=== PATIENT | male | born 1955 | race Caucasian/White ===

== ENCOUNTER → 2020-08-14 13:26 | Outpatient (BNVA) | payer MEDICARE, SELFPAY | PROVIDERS: Family Provider Family Medicine; PCP Nurse Practitioner Family; Referring Provider Nurse Practitioner Family; Visit Provider Nurse Practitioner Family | DX: R33.9 Retention of urine, unspecified (principal); N40.1 Benign prostatic hyperplasia with lower urinary tract symptoms | CPT/HCPCS: 81003 ==

== ENCOUNTER → 2020-10-07 16:12 | Outpatient (BNVA) | payer MEDICARE, SELFPAY | PROVIDERS: Family Provider Family Medicine; PCP Nurse Practitioner Family; Visit Provider Urology | DX: N40.1 Benign prostatic hyperplasia with lower urinary tract symptoms (principal); N31.8 Other neuromuscular dysfunction of bladder; N30.00 Acute cystitis without hematuria; R33.9 Retention of urine, unspecified | CPT/HCPCS: 81003; 87077; 87086; 87184 ==

== ENCOUNTER 2020-12-02 09:33 | Outpatient (CLI) | payer MEDICARE, SELFPAY ==
--- NOTE | 2020-12-02 09:50 | USCV_ITS ---
Dominik West Age: 65 Gender: M : 1955 Exam Date: 12/02/2020 10:10 Ordering Phys: Camila Santiago Technologist: Corrine Brady [place] [facility] [place]: IRREGULAR HEART BEAT BP: 98 / 59 HR: 88 Rhythm: Sinus Technical Quality: Adequate MEASUREMENTS (Male / Female) Normal Values 2D ECHO LV Diastolic Diameter PLAX 5.0 cm 4.2 - 5.9 / 3.9 - 5.3 cm LV Systolic Diameter PLAX 3.5 cm IVS Diastolic Thickness 1.3 cm 0.6 - 1.0 / 0.6 - 0.9 cm IVS Systolic Thickness 1.7 cm LVPW Diastolic Thickness 1.2 cm 0.6 - 1.0 / 0.6 - 0.9 cm LVPW Systolic Thickness 1.8 cm RV Chamber Size 2.9 cm LVOT Diameter 2.0 cm LV Ejection Fraction 2D Teich 55.1 % LV Ejection Fraction MOD 2C 45.1 % LV Ejection Fraction 2C AL 47.2 % LA Diameter 2.7 cm LA Width 2.8 cm LA Height 4.5 cm RA Width 3.3 cm RA Height 4.3 cm Aorta at Sinotubular Diameter 2.1 cm DOPPLER AV Peak Velocity 75.0 cm/s LVOT Peak Velocity 58.0 cm/s AV Area Cont Eq vti 2.4 cm squared AV Area Cont Eq pk 2.5 cm squared MV Area PHT 5.0 cm squared Mitral E to A Ratio 0.8 MV E' Velocity 46.0 cm/s TR Peak Velocity 223.0 cm/s TR Peak Gradient 19.9 mmHg TV Peak E Velocity 53.0 cm/s Right Atrial Pressure 8.0 mmHg Pulmonary Artery Systolic Pressu 27.9 mmHg PV Peak Velocity 72.0 cm/s RV Acceleration Time 0.1 s RV Ejection Time 0.3 s RV AcT/ET 0.4 FINDINGS Left Ventricle Normal left ventricular cavity size. Moderately reduced left ventricular systolic function. There appeared to be anterior and septal wall hypokinesis. Left ventricular ejection fraction is estimated at 45 %. Grade I/IV diastolic dysfunction (abnormal relaxation filling pattern), normal to mildly elevated filling pressures. Right Ventricle The right ventricle is normal in size and function. Right Atrium The right atrium is normal in size. Left Atrium The left atrium is normal in size. Mitral Valve Mildly thickened mitral valve. No mitral valve stenosis. Trace mitral valve regurgitation. Aortic Valve Severe aortic valve calcification. No aortic valve stenosis. Trace aortic valve regurgitation. Tricuspid Valve Structurally normal tricuspid valve without significant stenosis or regurgitation. Pulmonary artery systolic pressure is normal. Pulmonic Valve Structurally normal pulmonic valve without significant stenosis. There is no pulmonic regurgitation. Pericardium Normal pericardium without effusion. Aorta Normal ascending aorta dimension. CONCLUSIONS 1-Normal left ventricular cavity size. Moderately reduced left ventricular systolic function. There appeared to be anterior and septal wall hypokinesis. Left ventricular ejection fraction is estimated at 45 %. Grade I/IV diastolic dysfunction (abnormal relaxation filling pattern), normal to mildly elevated filling pressures. 2-Severe aortic valve calcification. No aortic valve stenosis. Trace aortic valve regurgitation. 3-Mildly thickened mitral valve. No mitral valve stenosis. Trace mitral valve regurgitation. 4-There is no pericardial effusion. 5-Pulmonary artery systolic pressure is within normal limits. 6-Right atrial pressure is around 5 mm of mercury. 7-There are no prior echocardiogram studies to compare. Jason Estevez MD (Electronically Signed) Final Date: 02 December 2020 19:38 S
== END 2020-12-02 09:34 | disposition home or self-care (01) ==
PROVIDERS: PCP Nurse Practitioner Family; Visit Provider Nurse Practitioner Family
DX: I08.0 Rheumatic disorders of both mitral and aortic valves (principal); I49.9 Cardiac arrhythmia, unspecified
CPT/HCPCS: 93306

== ENCOUNTER 2021-02-10 08:11 | Outpatient (CLI) | payer MEDICARE, SELFPAY ==
[2021-02-10 08:23] VITALS: BMI 20.7
--- NOTE | 2021-02-10 08:24 | ECG_ITS ---
[facility] Test Date: 2021-02-10 Pat Name: Dominik West Department: Room: Gender: Male Measurement And Verification Engineer: Nataliia Anderson : 1955 Requested By: Lauro Kearns Order Number: [id number] Reading MD: DINORAH WEBSTER Interpretive Statements NAME OF STUDY: LEXISCAN SESTAMIBI STRESS TEST INDICATION: Chest Pain, NOTE: Please note that this is the electrocardiogram portion of the Lexiscan/Sestamibi stress test. The perfusion scan will be documented separately. DATA: Baseline heart rate was 79 beats per minute. Baseline blood pressure was 131/70 millimeters of mercury. Target heart rate was 153. Maximum heart rate achieved was 88. which was 57% of the predicted target heart rate. Maximum blood pressure was 131/72 millimeters of mercury. The reason for ending the test was completion of the protocol. The patient did not experience any symptoms. ELECTROCARDIOGRAM: BASELINE: Sinus rhythm. Normal axis. Poor R wave progression, could be lead placement versus old anterior wall myocardial infarction otherwise no ST-T changes suggestive of ischemia noted. No arrhythmia noted. EXERCISE: After Lexiscan injection, no ST-T changes suggestive of ischemic noted. No arrhythmia noted. CONCLUSION: Please note due to baseline abnormality of the EKG specificity and sensitivity of the EKG portion of LexiScan MIBI stress test will be low 1. EKG not suggestive of ischemia 2. Lexiscan injection unremarkable. 3. Perfusion scan will be documented separately. Electronically Signed On 02-22-2021 14:39:55 MINERAL SURVEYING TECHNICIAN by DINORAH WEBSTER [id number]
--- NOTE | 2021-02-10 08:24 | NMCV_ITS ---
NM nicole perf SPECT r/s* [id number] Dominik West Age: 65 Gender: M : 1955 Exam Date: 02/10/2021 09:12 Ordering Phys: Lauro Kearns M.D ([email or web address]) Technologist: ERIK Brown Exam Location: [facility] Indications: CHEST PAIN STRESS TEST [facility] IMAGE PROTOCOL Rest/Stress 1 Lexiscan Day Radiopharmaceutical Dose (mCi) Administration Site Administered by Rest: Tc-99m 10.9 IV ERIK Briones Sestamibi Stress:Tc-99m 32.3 IV ERIK Brown Sestamialirio Rest: 10-Feb-2021 60 Discovery 630 Stress: 10-Feb-2021 30 Discovery 630 0.4mg Lexiscan. Images obtained in supine and prone position. SPECT RESULTS Technical Quality: Excellent Raw Data Analysis: Normal Image Corrections: No attenuation or motion correction applied Summed Stress Score: 23 Summed Rest Score: 25 Summed Difference Score: 1 PERFUSION FINDINGS There is large in size fixed perfusion defects in apical, apical inferior,apical anterior and inferior chaves. This represents prior infarct with no significant aryan-infarct ischemia. FUNCTIONAL RESULTS (calculated via Gated SPECT) Stress Image LV EF (%): 27 Stress EDV (mL):184 TID: 1.14 Stress ESV (mL):134 FUNCTIONAL FINDINGS: LV systolic function is severely reduced with EF of 27% IMPRESSIONS 1. Abnormal myocardial perfusion imaging with large sized infarct noted in apical, apical anterior, apical inferior and inferior chaves. No significant ischemia seen. 2. LV systolic function is severely reduced with EF of 27% Lauro Kearns MD (Electronically Signed) Final Date: 11 February 2021 13:36 S
[2021-02-10 09:45] VITALS: BP 130/72; PULSE 86
[2021-02-10] MEDS: regadenoson 0.4 Mg/5 ml Syringe IVP (09:47)
== END 2021-02-10 08:12 | disposition home or self-care (01) ==
LOC: CDL 08:13
PROVIDERS: PCP Nurse Practitioner Family; Visit Provider Internal Medicine
DX: R07.9 Chest pain, unspecified (principal)
CPT/HCPCS: 78452; 93017; A9500; J2785

== ENCOUNTER → 2021-04-17 11:09 | Outpatient (BNVA) | payer MEDICARE, SELFPAY | PROVIDERS: PCP Nurse Practitioner Family; Visit Provider Internal Medicine | DX: I25.10 Atherosclerotic heart disease of native coronary artery without angina pectoris (principal); I49.9 Cardiac arrhythmia, unspecified; E78.5 Hyperlipidemia, unspecified; E11.9 Type 2 diabetes mellitus without complications | CPT/HCPCS: 99214 ==

== ENCOUNTER 2021-09-02 18:45 | Inpatient (IN) | payer MEDICARE, SELFPAY ==
--- NOTE | 2021-09-02 18:56 | ED_ITS ---
HPI - Nausea/Vomiting/Diarrhea General: Chief complaint: ER Hold Stated complaint: N/V/ DEHYDRATED Time Seen by Provider: 09/02/21 18:55 History of Present Illness: Mr. West is a 66-year-old gentleman with significant past medical history of hypertension, hyperlipidemia, diabetes, CAD, detrussor dysfunction with intermittent self cath, history of ventricular arrhythmia who presents to the emergency department due to generalized symptoms. He reports 3 days of generalized malaise associated with recurrent episodes of nausea, vomiting, and 1 episode of watery diarrhea. He has associated periumbilical discomfort which is moderate in intensity and persisted. He notes poor oral intake and 1 episode of syncope associated with lightheadedness and position change. Overall course of symptoms is worsening. Intensity is moderate to severe. No other specific changes in health, exacerbating, or alleviating factors identified. Pertinent past history: other Onset (ago): day(s) Description of vomiting: watery Description of diarrhea: watery Associated nausea: Yes Associated abdominal pain: Yes Location of pain: Periumbilical Pain consistency: constant Severity: moderate Associated symtoms: Reports nausea Review of Systems General: Reports: 10 or more systems reviewed and unremarkable except in HPI and below GI: Reports: nausea PFSH ED PFSH: Medical History Acute UTI BPH loc w urin obs/LUTS CAD (coronary artery disease) Dehydration Detrusor dysfunction Diabetes Dyspnea on exertion GERD (gastroesophageal reflux disease) Hyperlipidemia Kidney stone Obstructive sleep apnea Self-catheterizes urinary bladder Urinary retention Vomiting Surgical History History of back surgery History of surgery on wrist Hx of heart artery stent Family History Mother , AT AGE 57 Emphysema lung Father , AT AGE 47 Motor vehicle accident Social History Smoking and tobacco status: former smoker Alcohol intake: current Alcohol intake frequency: holidays/special occasions only Marital status: / Current occupational status: retired History of recent travel: No Physical Exam Const: COMMON NORMALS: alert GENERAL APPEARANCE: cooperative, well developed and ill appearing HENMT: COMMON NORMALS: normocephalic and atraumatic HEAD & SCALP: normocephalic and atraumatic OTHER: dry mucous membranes Eye: COMMON NORMALS: conjunctivae normal CONJUNCTIVA: Yes conjunctivae normal SCLERA: sclerae normal Neck/C-Spine: COMMON NORMALS: supple GENERAL: Yes trachea midline Resp: COMMON NORMALS: normal respiratory effort and clear to auscultation bilaterally EFFORT & INSPECTION: Yes able to speak in complete sentences AUSCULTATION: clear to auscultation bilaterally Cardio: COMMON NORMALS: regular rhythm RATE: tachycardic RHYTHM: regular rhythm GI: COMMON NORMALS: Soft to palpation PALPATION: Yes Soft to palpation, Yes Tenderness to palpation present (GI), No Guarding due to palpation present (GI) and No Rigid due to palpation PERCUSSION: normal to percussion Extremity: GENERAL: Yes normal exam except as noted and No edema Neuro: COMMON NORMALS: moves all extremities SENSORIUM/ORIENTATION: Yes alert and No Orientation impaired Psych: COMMON NORMALS: mental status grossly normal and Normal thought process present THOUGHT PROCESS: Normal thought process present Course ED course: - Patient was seen and evaluated by me at bedside - Patient placed on cardiac monitors, IV access obtained - Initial evaluation notable for exam as above. Ill-appearing. Dehydrated appearing. - Labs and xrays personally interpreted by me. EKG showing sinus tachycardia with occasional PVCs, T wave abnormalities, No STEMI. - Fluids and antiemetic given - Labs notable for no leukocytosis, normal hemoglobin. Metabolic panel with some evidence of dehydration. Initial lactate elevated. Delta troponin negative. Urinalysis concerning for urinary tract infection. Ketones positive with mild elevation glucose. Blood gas with compensated pH. - Imaging notable for no lobar consolidation or pneumothorax on chest x-ray. CT head without acute intracranial pathology. There are circumferential bulging of the bladder with mild metabolic end above noticed for UTI on CT abdomen and pelvis. -Antibiotics given - Upon serial reexamination after treatment the patient was only very mildly improved. - Based on patient history, evaluation, and testing as interpreted the most likely cause of the patient's condition is UTI with metabolic derangement - The results of ED evaluation were discussed with the patient including plan for admission due to requirement for level of care not available if discharged to prevent significant worsening/deterioration. - Admitting service was contacted and Dr Duenas with the hospitalist service agreed to admit the patient - Patient was admitted without further deterioration or significant events. Note: Click bubbles or prepopulated boyd in note writing are used for assistance with data collection and billing and are inherently more limited than narrative and other text portions of this note. Please use narrative for additional clinical history and defer to narrative/free test for any case of contradictory information. If information appears in only free text or click bubble it should be considered present or absent as reported. Please contact note assembly instructions writer for clarifications of clinical information or contradictory information. MDM is a brief summary, contradictory or erroneous seeming information should be clarified and full note should be reviewed. Vital Signs: Vital signs: Vital Signs Temperature 98.2 F 09/08/21 17:35 Pulse Rate 70 09/08/21 17:35 Respiratory Rate 14 09/08/21 17:35 Blood Pressure 107/64 09/08/21 17:35 Pulse Oximetry 98 09/08/21 17:35 Oxygen Delivery Me thod 09/08/21 07:36 Oxygen Flow Rate 4 09/07/21 20:00 MDM - Nausea/Vomiting/Diarrhea Medical Decision Making 66-year-old gentleman with generalized symptoms including abdominal symptoms. Patient has complicated urinary tract infection resulting in metabolic abnormality. Admitted for further management. Medical Records I reviewed the patient's medical records. Lab Data I reviewed the patient's lab results. : 09/08/21 05:33 09/08/21 05:33 Radiology Impressions Abdomen/Pelvis CT 09/02/21 19:28 IMPRESSION: 1. Circumferential wall thickening of the bladder and mild symmetric wall thickening of both ureters suspicious for urinary tract infection. Correlate with urinalysis. 2. A couple punctate nonobstructing stones noted in the right kidney. Chest X-Ray 09/02/21 19:28 IMPRESSION: No acute findings. Head CT 09/02/21 19:28 IMPRESSION: No acute intracranial abnormality. Chest/Abdomen/Pelvis CT 09/04/21 15:54 IMPRESSION: 1. Few peripheral areas of ground-glass opacification in the middle lobe and right lower lobe. Findings are concerning for pneumonia, including COVID-19 pneumonia. Recommend clinical correlation. Recommend followup chest imaging to insure resolution of these findings. 2. Incidental/nonacute findings are listed in the report. IMPRESSION: 1. Stable diffuse, mild wall thickening of the bladder. In the correct clinical setting, this may suggest cystitis. Recommend correlation with laboratory findings. Alternatively, this may be secondary to chronic outlet obstruction. 2. Two nonobstructing stones in the right kidney. 3. Incidental/nonacute findings are listed in the report. ADDENDUM: 09/04/211956 Per report, the patient is COVID-19 positive. Urgent results were discussed with Dr. Bruce on 09/04/2021 at 7:54 PM CDT. KUB X-Ray 09/06/21 14:02 IMPRESSION: 1. No intestinal obstruction. 2. Atherosclerosis. Hepatobiliary Scan Nuclear Medicine 09/08/21 12:50 IMPRESSION: 1. Normal HIDA scan. 2. Normal gallbladder ejection fraction. Laboratory Results WBC 5.8 10^3/uL (4.0-10.0) 09/03/21 04:20 RBC 4.41 10^6/uL (4.1-5.3) 09/03/21 04:20 Hgb 12.6 g/dL (11.7-16.6) 09/03/21 04:20 Hct 37.2 % (42.0-52.0) L 09/03/21 04:20 MCV 84.4 fl (80-94) 09/03/21 04:20 MCH 28.6 pg (28.0-34.0) 09/03/21 04:20 MCHC 33.9 g/dL (30.0-36.0) 09/03/21 04:20 RDW 13.1 % (12.1-15.1) 09/03/21 04:20 Plt Count 161 10^3/cmm (130-400) 09/03/21 04:20 MPV 10.0 fL (7.4-10.4) 09/03/21 04:20 Neut % (Auto) 68.4 % 09/03/21 04:20 Lymph % (Auto) 23.4 % 09/03/21 04:20 [place] % (Auto) 8.0 % 09/03/21 04:20 Eos % (Auto) 0.0 % 09/03/21 04:20 Baso % (Auto) 0.0 % 09/03/21 04:20 Neut # (Auto) 3.94 10^3/uL (1.8-7.7) 09/03/21 04:20 Lymph # (Auto) 1.4 10^3/uL (0.8-4.8) 09/03/21 04:20 [place] # (Auto) 0.5 10^3/uL (0.2-0.9) 09/03/21 04:20 Eos # (Auto) 0.0 10^3/uL (0.0-0.8) 09/03/21 04:20 Baso # (Auto) 0.0 10^3/uL (0.0-0.1) 09/03/21 04:20 Nucleated RBC % (auto) 0 % 09/03/21 04:20 Nucleated RBCs # 0.0 /100WBC 09/03/21 04:20 D-Dimer 0.57 ug/mIFEU (0-0.59) 09/03/21 04:20 Specimen Type Arterial 09/02/21 21:10 Sample Site Brachial, left 09/02/21 21:10 ABG pH 7.45 (7.35-7.45) 09/02/21 21:10 ABG pCO2 34.7 mmHg (35-45) L 09/02/21 21:10 ABG pO2 83.5 mmHg (80.0-100.0) 09/02/21 21:10 ABG HCO3 23.8 mmol/L (22-26) 09/02/21 21:10 ABG Base Excess 0.1 mmol/L (-2.0-2.0) 09/02/21 21:10 Jomar Test Pos 09/02/21 21:10 Hematocrit 39.4 % (42-52) L 09/02/21 21:10 O2 Delivery Device None 09/02/21 21:10 Gallery Or Museum Curator ID Hensa 09/02/21 21:10 Sodium 138 mmol/L (136-145) 09/03/21 04:20 Potassium 3.4 mmol/L (3.5-5.1) L 09/03/21 04:20 Chloride 101 mmol/L (98-107) 09/03/21 04:20 Carbon Dioxide 23 mmol/L (22-29) 09/03/21 04:20 Anion Gap 17.4 (5-19) 09/03/21 04:20 BUN 33 mg/dL (8-23) H 09/03/21 04:20 Creatinine 0.8 mg/dL (0.7-1.2) 09/03/21 04:20 GFR Calculation 96.1 mL/min (90-130) 09/03/21 04:20 Glucose 119 mg/dL (65-115) H 09/03/21 04:20 POC Glucose 99 mg/dL (70-110) 09/03/21 06:22 Estimat Average Glucose 203 09/03/21 04:20 Hemoglobin A1c 8.7 % (4.0-6.0) H 09/03/21 04:20 Calculated Osmolality 294 mOsm/kg (285-295) 09/03/21 04:20 Lactate 2.8 mmol/L (0.5-2.2) H 09/02/21 19:44 Calcium 8.6 mg/dL (8.5-10.5) 09/03/21 04:20 Magnesium 1.9 mg/dL (1.7-2.3) 09/03/21 04:20 Total Bilirubin 0.3 mg/dL (0.15-1.2) 09/03/21 04:20 AST 17 U/L (0-40) 09/03/21 04:20 ALT 18 U/L (0-41) 09/03/21 04:20 Alkaline Phosphatase 126 IU/L (40-130) 09/03/21 04:20 Troponin T Baseline 18 ng/L (0-15) H 09/02/21 19:44 Troponin T 120 Minute 17.26 ng/L (0-15) H 09/02/21 21:36 Delta Troponin T -0.74 ABS# (0-10) L 09/02/21 21:36 Troponin T Hi Sens 6Hr 21.17 ng/L (0-15) H 09/03/21 01:32 Troponin T Hi Sens 6Hr Delta 3.17 ng/L (0-12) 09/03/21 01:32 Total Protein 6.6 g/dL (6.6-8.7) 09/03/21 04:20 Albumin 3.6 g/dL (3.5-5.2) 09/03/21 04:20 Globulin 3.0 g/dL (1.3-4.6) 09/03/21 04:20 Lipase 61 U/L (13-60) H 09/02/21 19:44 TSH 1.08 uIU/mL (0.27-4.20) 09/02/21 19:44 Urine Color Yellow (Yellow) 09/02/21 20:05 Urine Appearance Sl hazy (CLEAR) 09/02/21 20:05 Urine pH 7 (5-7) 09/02/21 20:05 Ur Specific [place] 1.005 (1.005-1.030) 09/02/21 20:05 Urine Protein Trace (Negative) 09/02/21 20:05 Urine Glucose (UA) Trace (Normal) H 09/02/21 20:05 Urine Ketones 2+ (Negative) H 09/02/21 20:05 Urine Blood Neg (Negative) 09/02/21 20:05 Urine Nitrate Negative (Negative) 09/02/21 20:05 Urine Bilirubin Neg (Negative) 09/02/21 20:05 Urine Urobilinogen Norm mg/dL (Negative) 09/02/21 20:05 Ur Leukocyte Esterase 2+ (Negative) H 09/02/21 20:05 Urine RBC 0-4 /hpf (0-2) H 09/02/21 20:05 Urine WBC Too numerous to cnt /hpf (0-5) H 09/02/21 20:05 Ur Squamous Epith Cells 0-4 /hpf (0-5) H 09/02/21 20:05 Triple Phos Crystals 0-4 /hpf H 09/02/21 20:05 Amorphous Sediment 2+ /hpf 09/02/21 20:05 Urine Bacteria 1+ /hpf (NONE) H 09/02/21 20:05 Serum Ketones Positive (Negative) H 09/02/21 19:44 Influenza Type A Ag Negative (Negative) 09/02/21 20:05 Influenza Type B Ag Negative (Negative) 09/02/21 20:05 SARS-CoV-2 Ag (Rapid) Positive (Negative) H 09/02/21 19:30 Discharge Plan Discharge Patient Disposition: Admitted As Inpatient Admit Provider: Rl Duenas Clinical Impression: Acute UTI, Dehydration, COVID-19 Condition: Stable Discharge Diet: Clear Liquid Discharge Activity: Increase activity as tolerated Coding Level of Care Code ED [employer] Cake Decorator for Rafa Madison
[2021-09-02 19:02] VITALS: BP 157/95; PULSE 105; RESP 20; TEMP 36.4; O2SAT 96; BMI 21.4
--- NOTE | 2021-09-02 19:28 | CTR_ITS ---
PROCEDURE INFORMATION: Exam: CT Abdomen And Pelvis With Contrast Exam date and time: 09/02/2021 10:10 PM Age: 66 years old Clinical indication: Condition or disease; Other: Covid with mid abdomen pain near hernia and n/v; Additional info: Mid abd pain, n/v TECHNIQUE: Imaging protocol: Computed tomography of the abdomen and pelvis with contrast. Radiation optimization: All CT scans at this facility use at least one of these dose optimization techniques: automated exposure control; mA and/or kV adjustment per patient size (includes targeted exams where dose is matched to clinical indication); or iterative reconstruction. Contrast material: OMNIPAQUE 350; Contrast volume: 90 ml; Contrast route: INTRAVENOUS (IV); COMPARISON: CR (CHEST, ) 09/02/2021 7:37 PM RADIATION DOSE METRICS: Total DLP (mGy-cm): 890.73 FINDINGS: Liver: Normal. No mass. Gallbladder and bile ducts: Normal. No calcified stones. No ductal dilation. Pancreas: Normal. No ductal dilation. Spleen: Normal. No splenomegaly. Adrenal glands: Normal. No mass. Kidneys and ureters: A couple punctate nonobstructing stones noted the right kidney. Mild symmetric wall thickening throughout both ureters. No hydronephrosis. Stomach and bowel: Unremarkable. No obstruction. No mucosal thickening. Appendix: Appendectomy. Intraperitoneal space: Unremarkable. No free air. No significant fluid collection. Vasculature: Unremarkable. No abdominal aortic aneurysm. Lymph nodes: Unremarkable. No enlarged lymph nodes. Urinary bladder: Circumferential wall thickening of the bladder. Reproductive: Unremarkable as visualized. Bones/joints: No acute fracture. Soft tissues: Some nonspecific mild focal subcutaneous fat stranding noted along the mid anterior abdominal wall, right greater than left. CT/CT abdomen pelvis w con* [id number] IMPRESSION: 1. Circumferential wall thickening of the bladder and mild symmetric wall thickening of both ureters suspicious for urinary tract infection. Correlate with urinalysis. 2. A couple punctate nonobstructing stones noted in the right kidney.
--- NOTE | 2021-09-02 19:28 | XRR_ITS ---
PROCEDURE INFORMATION: Exam: XR Chest Exam date and time: 09/02/2021 7:37 PM Age: 66 years old Clinical indication: Other: Syncope TECHNIQUE: Imaging protocol: Radiologic exam of the chest. Views: 1 view. COMPARISON: No relevant prior studies available. FINDINGS: Lungs: Unremarkable. No consolidation. Pleural spaces: Unremarkable. No pleural effusion. No pneumothorax. Heart/Mediastinum: Unremarkable. No cardiomegaly. Bones/joints: Unremarkable. XR/XR chest 1V portable [id number] IMPRESSION: No acute findings.
--- NOTE | 2021-09-02 19:28 | CTR_ITS ---
PROCEDURE INFORMATION: Exam: CT Head Without Contrast Exam date and time: 09/02/2021 10:08 PM Age: 66 years old Clinical indication: Condition or disease; Other: Covid; Additional info: Syncope TECHNIQUE: Imaging protocol: Computed tomography of the head without contrast. Radiation optimization: All CT scans at this facility use at least one of these dose optimization techniques: automated exposure control; mA and/or kV adjustment per patient size (includes targeted exams where dose is matched to clinical indication); or iterative reconstruction. COMPARISON: No relevant prior studies available. RADIATION DOSE METRICS: Total DLP (mGy-cm): 1150.48 FINDINGS: Brain: No hemorrhage. No edema. Moderate diffuse cerebral atrophy. No significant white matter disease. No mass effect. Cerebral ventricles: No ventriculomegaly. Paranasal sinuses: Partially opacified right maxillary sinus. The rest of the paranasal sinuses are well pneumatized. Mastoid air cells: Visualized mastoid air cells are well aerated. Bones/joints: Unremarkable. No acute fracture. Soft tissues: Unremarkable. CT/CT head wo con* [id number] IMPRESSION: No acute intracranial abnormality.
--- NOTE | 2021-09-02 19:29 | ECG_ITS ---
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 Measurements Intervals [place] Rate: 107 P: 82 NC: 169 QRS: 257 QRSD: 108 T: 95 QT: 412 QTc: 552 Interpretive Statements SINUS TACHYCARDIA WITH OCCASIONAL VENTRICULAR PREMATURE COMPLEXES INDETERMINATE AXIS INCOMPLETE RIGHT BUNDLE BRANCH BLOCK [90+ ms QRS DURATION, TERMINAL R IN V1/V2, 40+ ms S IN I/aVL/V4/V5/V6] ANTEROSEPTAL MYOCARDIAL INFARCTION , OF INDETERMINATE AGE [40+ ms Q WAVE IN V1-V4] No previous ECG available for comparison Electronically Signed On 09-02-2021 23:20:21 CDT by Lauro Kearns M.D. [email or web address]
[2021-09-02 19:40] VITALS: BP 124/92; PULSE 104; RESP 18; O2SAT 99
[2021-09-02] MEDS: metoclopramide 5 mg/mL SDV 2 mL 10 MG IVP (19:40)
[2021-09-02] MEDS: sodium chloride 0.9% 1,000 ML 999 ML IV (19:40)
[2021-09-02 19:46] VITALS: BP 124/92; RESP 18; O2SAT 100
[2021-09-02 20:02] LABS: Basophils % 0.2 %; Hematocrit 38.1 % (42.0-52.0); Hemoglobin 13.4 g/dL (11.7-16.6); Lymphocytes % 15.2 %; Mean Corpuscular HGB Conc 35.2 g/dL (30.0-36.0); Mean Corpuscular Hemoglobin 28.6 pg (28.0-34.0); Mean Corpuscular Volume 81.4 fl (80-94); Monocytes # 0.5 10^3/uL (0.2-0.9); Monocytes % 7.3 %; Neutrophils # 4.99 10^3/uL (1.8-7.7); Neutrophils % 77.1 %; Nucleated Red Blood Cells % 0 %; Platelet Count 204 10^3/cmm (130-400); Red Blood Count 4.68 10^6/uL (4.1-5.3); Red Cell Distribution Width 12.7 % (12.1-15.1); White Blood Count 6.5 10^3/uL (4.0-10.0)
[2021-09-02 20:08] LABS: Ketone (Acetest) Serum Positive (Negative)
[2021-09-02 20:14] LABS: Lactate (Lactic Acid level) 2.8 mmol/L (0.5-2.2)
[2021-09-02 20:33] LABS: Add Urine Microscopic? YES; Amorphous Sediment Urine 2+ /hpf; Bacteria Urine 1+ /hpf; Bilirubin Urine Neg (Negative); Blood Urine Neg (Negative); Glucose Urine UA Trace (Normal); Ketones Urine 2+ (Negative); Leukocyte Esterase Urine 2+ (Negative); Nitrate Urine Negative (Negative); Protein Urine Trace (Negative); RBC Urine 0-4 /hpf (0-2); Specific Gravity, Urine 1.005 (1.005-1.030); Squamous Epithelial Cell Urine 0-4 /hpf (0-5); Triple Phosphate Crystal Urine 0-4 /hpf; Urine Appearance SL Hazy (CLEAR); Urine Color Yellow (Yellow); Urobilinogen Urine Norm (Negative); WBC Urine TOO NUMEROUS TO CNT /hpf (0-5); pH Urine 7 (5-7)
[2021-09-02 20:34] LABS: Add Urine Culture? Yes
[2021-09-02 20:36] LABS: SARS Covid-2 Antigen Positive (Negative)
[2021-09-02 20:36] LABS: Influenza A by IFA Negative (Negative); Influenza B by IFA Negative (Negative)
[2021-09-02 20:43] LABS: Troponin(5th) Baseline 18 ng/L (0-15)
[2021-09-02 20:45] LABS: Alanine Aminotransferase 20 U/L (0-41); Albumin Level 3.9 g/dL (3.5-5.2); Alkaline Phosphatase 136 IU/L (40-130); Anion Gap 25.8 (5-19); Aspartate Amino Transferase 17 U/L (0-40); Blood Urea Nitrogen 38 mg/dL (8-23); Calcium 9.1 mg/dL (8.5-10.5); Carbon Dioxide 21 mmol/L (22-29); Chloride 96 mmol/L (98-107); Globulin 3.3 g/dL (1.3-4.6); Glomerular Filtration Rate 96.1 mL/min (90-130); Glucose 173 mg/dL (65-115); Lipase 61 U/L (13-60); Magnesium 1.6 mg/dL (1.7-2.3); Osmolality Calculated 301 mOsm/kg (285-295); Potassium 3.8 mmol/L (3.5-5.1); Sodium 139 mmol/L (136-145); Thyroid Stimulating Hormone 1.08 uIU/mL (0.27-4.20); Total Bilirubin 0.4 mg/dL (0.15-1.2); Total Protein 7.2 g/dL (6.6-8.7)
[2021-09-02 20:49] VITALS: BP 147/78; RESP 18; O2SAT 97
[2021-09-02 21:23] LABS: ABG PCO2 34.7 mmHg (35-45); ABG PH Result 7.45 (7.35-7.45); Arterial Blood Gas Hematocrit 39.4 % (42-52); Base Excess ABG 0.1 mmol/L (-2.0-2.0); Blood Gas Allen Test Pos; Blood Gas Sample Site Brachial, left; Blood Gas Sample Type Arterial; HCO3 ABG 23.8 mmol/L (22-26); PO2 ABG 83.5 mmHg (80.0-100.0)
--- NOTE | 2021-09-02 21:29 | ECG_ITS ---
[facility] Test Date: 2021-09-02 Pat Name: Dominik West Department: Room: Gender: Male Staffing Clerk: : 1955 Requested By: King Garcia Order Number: [id number] Aldair MD: Lauro Kearns M.D. Measurements Intervals [place] Rate: 87 P: 94 ND: 163 QRS: -69 QRSD: 98 T: 105 QT: 388 QTc: 468 Interpretive Statements SINUS RHYTHM WITH OCCASIONAL VENTRICULAR PREMATURE COMPLEXES WITH OCCASIONAL SUPRAVENTRICULAR PREMATURE COMPLEXES LEFT AXIS DEVIATION [QRS AXIS < -30] ANTEROSEPTAL MYOCARDIAL INFARCTION , OF INDETERMINATE AGE [40+ ms Q WAVE IN V1-V4] MODERATE T-WAVE ABNORMALITY, CONSIDER LATERAL ISCHEMIA [-0.1+ mV T WAVE IN I/aVL/V5/V6] Compared to ECG 09/02/2021 20:01:17 Left-axis deviation now present T-wave abnormality now present Possible ischemia now present Sinus tachycardia no longer present Indeterminate axis no longer present Incomplete right bundle-branch block no longer present Myocardial infarct finding still present Electronically Signed On 09-02-2021 23:22:30 CDT by Lauro Kearns M.D. [id number]
[2021-09-02] MEDS: cefTRIAXone 1,000 MG in sodium chloride 0.9% (plus) 50 ML 100 MG IV (21:43)
[2021-09-02 21:45] VITALS: BP 121/67; PULSE 85; RESP 18; O2SAT 97
[2021-09-02 22:01] LABS: Troponin 5 2HR 17.26 ng/L (0-15)
[2021-09-02 22:03] LABS: Troponin 5 2HR Delta -0.74 ABS# (0-10)
[2021-09-02] MEDS: iohexol 350 mg/mL 100 mL Btl IV (22:15)
[2021-09-02] MEDS: magnesium sulfate premix 2 GM/50 ML PIGGYBACK IV (23:35)
[2021-09-02 23:39] VITALS: BP 99/50; PULSE 90; RESP 10; O2SAT 99
[2021-09-03] VITALS (7 sets, daily range): BP systolic 94–123; BP diastolic 56–81; PULSE 75–98; RESP 15–19; TEMP 36.6–37; O2SAT 94–97
--- NOTE | 2021-09-03 00:52 | PM.HP ---
Providers/Chief Complaint Admitting Physician: Rl Duenas Primary Care Provider: Camila Santiago Chief Complaint: N/V/ DEHYDRATED History of Present Illness Pleasant 66-year-old gentleman with history of diabetes, disrespecting for which he intermittently self catheterizes, other comorbidities due to about 3-4 days of malaise, recurrent episodes of nausea and vomiting, 1 episode of watery diarrhea, periumbilical abdominal discomfort, generalized weakness, inability to tolerate oral food or drink at home, and has not been able to take his medications in 3-4 days. Review of Systems Const: Reports: body aches, change in appetite, fatigue and malaise Eyes: Denies: change in vision, eye discomfort or eye redness ENMT: Denies: throat pain, oral sores or ear or mastoid pain Card: Denies: chest pain, edema, pre-syncope or dyspnea on exertion Resp: Denies: dyspnea, productive cough, change in phlegm color or hemoptysis GI: Reports: abdominal pain, nausea, vomiting and diarrhea; Denies: constipation, hematochezia or melena : Denies: flank pain, difficulty urinating, urinary frequency or hematuria Musc: Denies: back pain, joint swelling or joint redness Skin/Breast: Denies: rash or new lesions Neuro: Denies: headache(s), numbness in extremities, weakness in extremities, dizziness, confusion or seizure-like activity Endo: Denies: polyuria or polydipsia Tommy/Lymph: Denies: easy bleeding or tender lymph nodes All/Imm: Denies: urticaria or tongue swelling Medications/Allergies Home Medications Medication Instructions Recorded Confirmed Last Taken Type glipizide 5 mg tablet 5 mg PO BID 08/14/20 09/02/21 09/02/21 History tamsulosin 0.4 mg capsule 0.4 mg PO DAILY #90 cap 08/14/20 09/02/21 09/01/21 Rx metformin 500 mg tablet 500 mg PO BID 10/07/20 09/02/21 09/02/21 History methenamine hippurate 1 gram tablet 1 g PO BID #60 tab 10/07/20 09/02/21 09/02/21 Rx meclizine 12.5 mg tablet 12.5 mg PO TID PRN 12/11/20 09/02/21 Unknown History ascorbic acid (vitamin C) 1,000 mg 1 g PO BID tab 01/28/21 09/02/21 09/02/21 History tablet aspirin 81 mg chewable tablet 81 mg PO DAILY 09/02/21 09/02/21 09/01/21 History atorvastatin 20 mg tablet 20 mg PO DAILY 09/02/21 09/02/21 09/02/21 History ondansetron HCl 4 mg tablet 4 mg PO Q8H PRN 09/02/21 09/02/21 Unknown History Allergies Allergy/AdvReac Type Severity Reaction Status Date / Time baclofen Allergy Severe ALGY-Anaphy Unverified 09/02/21 23:57 laxis PFSH Acute PFSH: Medical History (Updated 09/03/21 @ 00:59 by Rl Duenas MD) BPH loc w urin obs/LUTS CAD (coronary artery disease) Detrusor dysfunction Diabetes Dyspnea on exertion GERD (gastroesophageal reflux disease) Hyperlipidemia Obstructive sleep apnea Self-catheterizes urinary bladder Urinary retention Surgical History History of back surgery History of surgery on wrist Hx of heart artery stent Family History Mother , AT AGE 57 Emphysema lung Father , AT AGE 47 Motor vehicle accident Social History Smoking and tobacco status: former smoker Alcohol intake: current Alcohol intake frequency: holidays/special occasions only Marital status: / Current occupational status: retired History of recent travel: No Vitals/I&O/Wt Last Vital Signs Temp 97.5 F L 09/02/21 19:02 Pulse 90 09/02/21 23:39 Resp 10 L 09/02/21 23:39 BP 99/50 09/02/21 23:39 Pulse Ox 99 09/02/21 23:39 09/02/21 09/02/21 09/03/21 14:59 22:59 06:59 Intake Total 50 / 50 1000 / 1050 Balance 50 / 50 1000 / 1050 Weight last 48 hrs Weight 65.771 kg Physical Exam Const: COMMON NORMALS: alert GENERAL APPEARANCE: cooperative and ill appearing ORIENTATION/CONSCIOUSNESS: Yes awake HENMT: COMMON NORMALS: normocephalic, EAC's normal, Normal external nose present and moist oral mucous membranes HEAD & SCALP: normocephalic NOSE: Normal external nose present EXTERNAL AUDITORY CANAL: EAC's normal Neck/C-Spine: COMMON NORMALS: no meningeal signs Chest: CHEST: Yes Symmetrical chest wall rise Resp: COMMON NORMALS: clear to auscultation bilaterally AUSCULTATION: clear to auscultation bilaterally Cardio: COMMON NORMALS: regular rate, regular rhythm and No murmurs present (Cardio) RATE: regular rate RHYTHM: regular rhythm GI: COMMON NORMALS: Normal to inspection, nondistended, normoactive bowel sounds present, Soft to palpation and non-tender PALPATION: Yes Soft to palpation Extremity: COMMON NORMALS: no pedal edema Neuro: COMMON NORMALS: moves all extremities SENSORIUM/ORIENTATION: Yes alert MENINGEAL SIGNS: Yes no meningeal signs Psych: COMMON NORMALS: mental status grossly normal Skin: COMMON NORMALS: no wounds RASHES: no rashes Data : 09/02/21 19:44 09/02/21 19:44 Micro: Microbiology 09/02/21 19:48 Blood Culture - Preliminary Blood SPECIMEN COLLECTED 09/02/21 19:44 Blood Culture - Preliminary Blood SPECIMEN COLLECTED A&P Assessment and plan (1) Acute UTI: Ceftriaxone. Follow-up urine culture. Continue self-catheterization. Status: Acute (2) COVID-19: COVID-19 without hypoxia, with nausea vomiting, diarrhea. Denies respiratory symptoms or cough. Monitor oxygenation. Monitor for other symptoms. Symptomatic control of nausea. PPI. Diarrhea reported so far is better. Continue isolation. DVT prophylaxis with Lovenox. Follow-up D-dimer. Status: Acute (3) Dehydration: Received fluid challenge, does have CHF, so cautious use of IV fluids, continue gentle IV rehydration including potassium given possible DKA. Follow-up electrolytes. Follow volume status. Discontinue/adjust fluids depending on recovery. Status: Acute (4) DKA (diabetic ketoacidosis): Possible DKA. No history of liver problems and does not appear to have parameters indicating cirrhosis. Does have positive ketones in urine and blood, possible mild DKA. pH is normal, but with combined disorder with elevated anion gap, low bicarb, likely also metabolic alkalosis with dehydration, vomiting. Discussed with him consideration of IV insulin drip, although given likely mild DKA currently discussed with him consideration of subcutaneous insulin and he is agreeable, start Lantus 10 units, sliding scale insulin. Glucose monitoring. Cautious IV hydration with potassium as well. Monitor volume status given history of congestive heart failure. Monitor electrolytes. Received magnesium replacement. Monitor potassium. N.p.o. sips and chips for now. Status: Acute (5) Hypomagnesemia: Received replacement. Recheck. Status: Acute (6) Self-catheterizes urinary bladder: Continue self-catheterization or straight caths. Status: Acute Plan History of urinary retention, BPH, self cath at home. Continue Flomax. CAD GERD HLD KACIE Attestations Medical Necessity Statement*: Admission of over 2 midnights is going to be needed for assessment of management of gentleman with no improvement at home with recurrent nausea and vomiting, COVID-19, UTI, early DKA electrolyte deficiencies, dehydration with history of CHF, inability to tolerate oral intake or oral medications. Coding Level of Care Code Acute Curriculum Counselor for Chg Fwd Diagnoses Self-catheterizes urinary bladder Z78.9 Acute UTI N39.0 COVID-19 U07.1 Dehydration E86.0 DKA (diabetic ketoacidosis) E11.10 Hypomagnesemia E83.42
--- NOTE | 2021-09-03 01:29 | ECG_ITS ---
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 Measurements Intervals [place] Rate: 90 P: 92 MD: 162 QRS: -37 QRSD: 100 T: 103 QT: 380 QTc: 466 Interpretive Statements SINUS RHYTHM WITH OCCASIONAL VENTRICULAR PREMATURE COMPLEXES LEFT AXIS DEVIATION [QRS AXIS < -30] ANTEROSEPTAL MYOCARDIAL INFARCTION , OF INDETERMINATE AGE [40+ ms Q WAVE IN V1-V4] MODERATE T-WAVE ABNORMALITY, CONSIDER LATERAL ISCHEMIA [-0.1+ mV T WAVE IN I/aVL/V5/V6] Compared to ECG 09/02/2021 21:40:53 No significant changes Electronically Signed On 09-03-2021 21:18:40 CDT by Rafat Weiss M.D. [id number]
[2021-09-03 01:39] LABS: Glucose Point of Care 91 mg/dL (70-110)
[2021-09-03] MEDS: D5-NS 0.45% + KCL 20 mEq 20 MEQ/1,000 ML BAG 30 MEQ IV (01:41)
[2021-09-03] MEDS: pantoprazole 40 mg SDV IVP (01:43)
[2021-09-03] MEDS: enoxaparin 40 mg/0.4 mL Syringe SUBCUT (01:43)
[2021-09-03 01:54] LABS: Troponin 5 6HR 21.17 ng/L (0-15); Troponin 5 6HR Delta 3.17 ng/L (0-12)
[2021-09-03 04:20] LABS: Glucose Point of Care 119 mg/dL (70-110)
[2021-09-03 04:23] LABS: Hematocrit 37.2 % (42.0-52.0); Hemoglobin 12.6 g/dL (11.7-16.6); Lymphocytes # 1.4 10^3/uL (0.8-4.8); Lymphocytes % 23.4 %; Mean Corpuscular HGB Conc 33.9 g/dL (30.0-36.0); Mean Corpuscular Hemoglobin 28.6 pg (28.0-34.0); Mean Corpuscular Volume 84.4 fl (80-94); Monocytes # 0.5 10^3/uL (0.2-0.9); Neutrophils # 3.94 10^3/uL (1.8-7.7); Neutrophils % 68.4 %; Nucleated Red Blood Cells % 0 %; Platelet Count 161 10^3/cmm (130-400); Red Blood Count 4.41 10^6/uL (4.1-5.3); Red Cell Distribution Width 13.1 % (12.1-15.1); White Blood Count 5.8 10^3/uL (4.0-10.0)
[2021-09-03 04:39] LABS: D Dimer 0.57 ug/mIFEU (0-0.59)
[2021-09-03 04:47] LABS: Alanine Aminotransferase 18 U/L (0-41); Albumin Level 3.6 g/dL (3.5-5.2); Alkaline Phosphatase 126 IU/L (40-130); Aspartate Amino Transferase 17 U/L (0-40); Blood Urea Nitrogen 33 mg/dL (8-23); Calcium 8.6 mg/dL (8.5-10.5); Carbon Dioxide 23 mmol/L (22-29); Chloride 101 mmol/L (98-107); Glomerular Filtration Rate 96.1 mL/min (90-130); Glucose 119 mg/dL (65-115); Magnesium 1.9 mg/dL (1.7-2.3); Osmolality Calculated 294 mOsm/kg (285-295); Sodium 138 mmol/L (136-145); Total Bilirubin 0.3 mg/dL (0.15-1.2); Total Protein 6.6 g/dL (6.6-8.7)
[2021-09-03 04:52] LABS: Anion Gap 17.4 (5-19); Potassium 3.4 mmol/L (3.5-5.1)
[2021-09-03 06:27] LABS: Glucose Point of Care 99 mg/dL (70-110)
[2021-09-03] MEDS: aspirin 81 mg Chew Tablet PO (09:47)
[2021-09-03] MEDS: atorvastatin 40 mg Tablet 20 MG PO (09:47)
[2021-09-03] MEDS: tamsulosin 0.4 mg Capsule PO (09:47)
[2021-09-03 10:51] LABS: Glucose Point of Care 124 mg/dL (70-110)
--- NOTE | 2021-09-03 13:43 | PM.MISC ---
Miscellaneous Note Note: Patient is stating that he is feeling better, no more nausea or diarrhea He is upset that his breakfast was very cold and he has missed his lunch I have notified ER coordinator to provide him warm lunch, Nicole is working on it Patient is laying supine Dehydrated Malnourished Severe protein calorie malnourishment Muscle mass loss Clear breath sounds bilaterally S1, S2 Saturating well Hemodynamically stable Abdomen soft No signs of edema Nonfocal neuro exam Assessment plan UTI: Continue ceftriaxone Follow-up with urine culture COVID-19 related pneumonia Not requiring oxygen Would like to rule out C. difficile C. difficile negative he can get Imodium for his diarrhea however no active symptoms Continue COVID-19 treatment Dehydration with electrolyte imbalance Electrolytes repleted Continue IV fluid hydration DKA: Ruled out Continue IV hydration, sliding scale Magnesium repleted I will start him on consistent carb diet Is full code Plan to discharge him tomorrow if clinically stable
[2021-09-03 14:30] LABS: Estmated Average Glucose 203; Hemoglobin A1C 8.7 % (4.0-6.0)
[2021-09-03 14:54] LABS: Glucose Point of Care 210 mg/dL (70-110)
[2021-09-03] MEDS: dexamethasone 4 mg Tablet 6 MG PO (15:19)
[2021-09-03] MEDS: insulin lispro 100 unit/1 mL SUBCUT (15:21)
[2021-09-03] MEDS: sodium chloride 0.9% 1,000 ML 30 ML IV (15:23)
[2021-09-03] MEDS: amoxicillin-clav 875-125 mg Tablet 1 TAB PO (17:57)
[2021-09-03 18:02] LABS: Glucose Point of Care 94 mg/dL (70-110)
[2021-09-03 20:49] LABS: Glucose Point of Care 240 mg/dL (70-110)
[2021-09-03] MEDS: cefTRIAXone 1,000 MG in sodium chloride 0.9% (plus) 50 ML 100 MG IV (23:09)
[2021-09-03] MEDS: insulin glargine 100 units/1 mL 10 UNIT SUBCUT (23:36)
[2021-09-04 00:13] VITALS: BP 114/66; PULSE 68; TEMP 36.7; O2SAT 95
[2021-09-04] MEDS: pantoprazole 40 mg SDV IVP (01:16)
[2021-09-04] MEDS: enoxaparin 40 mg/0.4 mL Syringe SUBCUT (01:17)
[2021-09-04] MEDS: insulin lispro 100 unit/1 mL SUBCUT ×2 (01:18→13:00)
[2021-09-04 04:33] VITALS: BP 114/66; PULSE 91; RESP 17; TEMP 36.7; O2SAT 97
[2021-09-04 05:58] LABS: Hematocrit 37.2 % (42.0-52.0); Hemoglobin 12.7 g/dL (11.7-16.6); Lymphocytes # 0.7 10^3/uL (0.8-4.8); Mean Corpuscular HGB Conc 34.1 g/dL (30.0-36.0); Mean Corpuscular Hemoglobin 28.5 pg (28.0-34.0); Mean Corpuscular Volume 83.6 fl (80-94); Mean Platelet Volume 10.5 fL (7.4-10.4); Monocytes # 0.3 10^3/uL (0.2-0.9); Monocytes % 8.8 %; Neutrophils # 2.53 10^3/uL (1.8-7.7); Neutrophils % 71.9 %; Nucleated Red Blood Cells % 0 %; Platelet Count 173 10^3/cmm (130-400); Red Blood Count 4.45 10^6/uL (4.1-5.3); White Blood Count 3.5 10^3/uL (4.0-10.0)
[2021-09-04 06:19] LABS: Alanine Aminotransferase 26 U/L (0-41); Albumin Level 3.9 g/dL (3.5-5.2); Alkaline Phosphatase 124 IU/L (40-130); Anion Gap 13.5 (5-19); Aspartate Amino Transferase 24 U/L (0-40); Blood Urea Nitrogen 33 mg/dL (8-23); Carbon Dioxide 28 mmol/L (22-29); Chloride 100 mmol/L (98-107); Globulin 3.1 g/dL (1.3-4.6); Glomerular Filtration Rate 96.1 mL/min (90-130); Glucose 154 mg/dL (65-115); Magnesium 1.9 mg/dL (1.7-2.3); Osmolality Calculated 296 mOsm/kg (285-295); Potassium 3.5 mmol/L (3.5-5.1); Sodium 138 mmol/L (136-145); Total Bilirubin 0.3 mg/dL (0.15-1.2)
[2021-09-04 06:24] LABS: Glucose Point of Care 279 mg/dL (70-110)
[2021-09-04 08:00] VITALS: BP 129/72; PULSE 69; RESP 18; TEMP 36.4; O2SAT 97
[2021-09-04] MEDS: tamsulosin 0.4 mg Capsule PO (09:37)
[2021-09-04] MEDS: atorvastatin 40 mg Tablet 20 MG PO (09:37)
[2021-09-04] MEDS: aspirin 81 mg Chew Tablet PO (09:37)
[2021-09-04] MEDS: amoxicillin-clav 875-125 mg Tablet 1 TAB PO (09:37)
[2021-09-04] MEDS: dexamethasone 4 mg Tablet 6 MG PO (09:37)
--- NOTE | 2021-09-04 11:51 | PM.DCS ---
Discharge Providers Date of Admission: 09/03/21 07:00 Date of Discharge: September 04, 2021 Attending Provider at Admission: Rl Duenas Attending Provider at Discharge: Jason Mandujano MD Primary Care Provider: Camila Santiago Diagnoses at Discharge Discharge Diagnosis (1) Acute UTI: Status: Acute (2) COVID-19: Status: Acute (3) Dehydration: Status: Acute (4) DKA (diabetic ketoacidosis): Status: Acute (5) Hypomagnesemia: Status: Acute (6) Self-catheterizes urinary bladder: Status: Acute Reason for Visit Reason for Visit: N/V/ Dehydrated Hospital Course Hospital Course 66-year male who was admitted to the hospital for management evaluation nausea and vomiting related to COVID-19. He did not require any oxygen during his hospitalization. He was able to eat and drink without any difficulty after 1 day of IV fluid hydration. No active emesis throughout his hospitalization. His diarrhea improved as well. We were not able to check C. difficile because his diarrhea stopped. At the time of discharge I will give him Augmentin, albuterol, few more doses of potassium and discontinue glipizide. Head CT unremarkable chest x-ray unremarkable abdomen pelvis CT scan showed cystitis related changes and nonobstructive kidney stone. Previous urine culture showed MRSA which I think is due to self-catheterization and contamination. It is sensitive to Augmentin. He did have mild protein calorie malnourishment. Physical Exam Narrative: Patient looks cachectic, malnourished Protein calorie malnourished Saturating well on room air Abdomen soft No active nausea or diarrhea Awake and alert Saturating well on room air No audible stridor or wheezing S1, S2 . He was eating breakfast when I saw him. Discharge Data Studies Completed and Pending Completed Studies During Hospitalization Category Date Time Status CT abdomen pelvis w con* [id number] Urgent Cat Scan 09/02/21 19:[address] head wo con* [id number] Urgent Cat Scan 09/02/21 19:28 Completed XR chest 1V portable [id number] Urgent Exams 09/02/21 19:28 Completed Pending at discharge Category Date Time Status Blood Culture Stat Lab 09/02/21 19:48 Results CDIFF [Clostridioides Difficile PCR] Routine Lab 09/03/21 13:49 Uncollected Complete Blood Count w/Auto AM LABS Lab 09/05/21 04:00 Ordered Complete Blood Count w/Auto AM LABS Lab 09/06/21 04:00 Ordered Comprehensive Metabolic Panel AM LABS Lab 09/05/21 04:00 Ordered Comprehensive Metabolic Panel AM LABS Lab 09/06/21 04:00 Ordered Magnesium AM LABS Lab 09/05/21 04:00 Ordered Magnesium AM LABS Lab 09/06/21 04:00 Ordered Urine Culture Stat Lab 09/02/21 20:05 Results Radiology Impressions Abdomen/Pelvis CT 09/02/21 19:28 IMPRESSION: 1. Circumferential wall thickening of the bladder and mild symmetric wall thickening of both ureters suspicious for urinary tract infection. Correlate with urinalysis. 2. A couple punctate nonobstructing stones noted in the right kidney. Chest X-Ray 09/02/21 19:28 IMPRESSION: No acute findings. Head CT 09/02/21 19:28 IMPRESSION: No acute intracranial abnormality. Laboratory Results WBC 3.5 10^3/uL (4.0-10.0) L 09/04/21 05:06 RBC 4.45 10^6/uL (4.1-5.3) 09/04/21 05:06 Hgb 12.7 g/dL (11.7-16.6) 09/04/21 05:06 Hct 37.2 % (42.0-52.0) L 09/04/21 05:06 MCV 83.6 fl (80-94) 09/04/21 05:06 MCH 28.5 pg (28.0-34.0) 09/04/21 05:06 MCHC 34.1 g/dL (30.0-36.0) 09/04/21 05:06 RDW 13.0 % (12.1-15.1) 09/04/21 05:06 Plt Count 173 10^3/cmm (130-400) 09/04/21 05:06 MPV 10.5 fL (7.4-10.4) H 09/04/21 05:06 Neut % (Auto) 71.9 % 09/04/21 05:06 Lymph % (Auto) 19.0 % 09/04/21 05:06 [place] % (Auto) 8.8 % 09/04/21 05:06 Eos % (Auto) 0.0 % 09/04/21 05:06 Baso % (Auto) 0.0 % 09/04/21 05:06 Neut # (Auto) 2.53 10^3/uL (1.8-7.7) 09/04/21 05:06 Lymph # (Auto) 0.7 10^3/uL (0.8-4.8) L 09/04/21 05:06 [place] # (Auto) 0.3 10^3/uL (0.2-0.9) 09/04/21 05:06 Eos # (Auto) 0.0 10^3/uL (0.0-0.8) 09/04/21 05:06 Baso # (Auto) 0.0 10^3/uL (0.0-0.1) 09/04/21 05:06 Nucleated RBC % (auto) 0 % 09/04/21 05:06 Nucleated RBCs # 0.0 /100WBC 09/04/21 05:06 D-Dimer 0.57 ug/mIFEU (0-0.59) 09/03/21 04:20 Specimen Type Arterial 09/02/21 21:10 Sample Site Brachial, left 09/02/21 21:10 ABG pH 7.45 (7.35-7.45) 09/02/21 21:10 ABG pCO2 34.7 mmHg (35-45) L 09/02/21 21:10 ABG pO2 83.5 mmHg (80.0-100.0) 09/02/21 21:10 ABG HCO3 23.8 mmol/L (22-26) 09/02/21 21:10 ABG Base Excess 0.1 mmol/L (-2.0-2.0) 09/02/21 21:10 Jomar Test Pos 09/02/21 21:10 Hematocrit 39.4 % (42-52) L 09/02/21 21:10 O2 Delivery Device None 09/02/21 21:10 Data Processing Operator ID Hensa 09/02/21 21:10 Sodium 138 mmol/L (136-145) 09/04/21 05:06 Potassium 3.5 mmol/L (3.5-5.1) 09/04/21 05:06 Chloride 100 mmol/L (98-107) 09/04/21 05:06 Carbon Dioxide 28 mmol/L (22-29) 09/04/21 05:06 Anion Gap 13.5 (5-19) 09/04/21 05:06 BUN 33 mg/dL (8-23) H 09/04/21 05:06 Creatinine 0.8 mg/dL (0.7-1.2) 09/04/21 05:06 GFR Calculation 96.1 mL/min (90-130) 09/04/21 05:06 Glucose 154 mg/dL (65-115) H 09/04/21 05:06 POC Glucose 279 mg/dL (70-110) H 09/04/21 01:09 Estimat Average Glucose 203 09/03/21 04:20 Hemoglobin A1c 8.7 % (4.0-6.0) H 09/03/21 04:20 Calculated Osmolality 296 mOsm/kg (285-295) H 09/04/21 05:06 Lactate 2.8 mmol/L (0.5-2.2) H 09/02/21 19:44 Calcium 9.0 mg/dL (8.5-10.5) 09/04/21 05:06 Magnesium 1.9 mg/dL (1.7-2.3) 09/04/21 05:06 Total Bilirubin 0.3 mg/dL (0.15-1.2) 09/04/21 05:06 AST 24 U/L (0-40) 09/04/21 05:06 ALT 26 U/L (0-41) 09/04/21 05:06 Alkaline Phosphatase 124 IU/L (40-130) 09/04/21 05:06 Troponin T Baseline 18 ng/L (0-15) H 09/02/21 19:44 Troponin T 120 Minute 17.26 ng/L (0-15) H 09/02/21 21:36 Delta Troponin T -0.74 ABS# (0-10) L 09/02/21 21:36 Troponin T Hi Sens 6Hr 21.17 ng/L (0-15) H 09/03/21 01:32 Troponin T Hi Sens 6Hr Delta 3.17 ng/L (0-12) 09/03/21 01:32 Total Protein 7.0 g/dL (6.6-8.7) 09/04/21 05:06 Albumin 3.9 g/dL (3.5-5.2) 09/04/21 05:06 Globulin 3.1 g/dL (1.3-4.6) 09/04/21 05:06 Lipase 61 U/L (13-60) H 09/02/21 19:44 TSH 1.08 uIU/mL (0.27-4.20) 09/02/21 19:44 Urine Color Yellow (Yellow) 09/02/21 20:05 Urine Appearance Sl hazy (CLEAR) 09/02/21 20:05 Urine pH 7 (5-7) 09/02/21 20:05 Ur Specific [place] 1.005 (1.005-1.030) 09/02/21 20:05 Urine Protein Trace (Negative) 09/02/21 20:05 Urine Glucose (UA) Trace (Normal) H 09/02/21 20:05 Urine Ketones 2+ (Negative) H 09/02/21 20:05 Urine Blood Neg (Negative) 09/02/21 20:05 Urine Nitrate Negative (Negative) 09/02/21 20:05 Urine Bilirubin Neg (Negative) 09/02/21 20:05 Urine Urobilinogen Norm mg/dL (Negative) 09/02/21 20:05 Ur Leukocyte Esterase 2+ (Negative) H 09/02/21 20:05 Urine RBC 0-4 /hpf (0-2) H 09/02/21 20:05 Urine WBC Too numerous to cnt /hpf (0-5) H 09/02/21 20:05 Ur Squamous Epith Cells 0-4 /hpf (0-5) H 09/02/21 20:05 Triple Phos Crystals 0-4 /hpf H 09/02/21 20:05 Amorphous Sediment 2+ /hpf 09/02/21 20:05 Urine Bacteria 1+ /hpf (NONE) H 09/02/21 20:05 Serum Ketones Positive (Negative) H 09/02/21 19:44 Influenza Type A Ag Negative (Negative) 09/02/21 20:05 Influenza Type B Ag Negative (Negative) 09/02/21 20:05 SARS-CoV-2 Ag (Rapid) Positive (Negative) H 09/02/21 19:30 Vitals Last Vital Signs Temp 97.5 F L 09/04/21 08:00 Pulse 69 09/04/21 08:00 Resp 18 09/04/21 08:00 BP 129/72 09/04/21 08:00 Pulse Ox 97 09/04/21 08:00 Discharge Plan Discharge Patient Disposition: Home Condition: Stable Prescriptions: New amoxicillin-pot clavulanate 875-125 mg Tablet 1 tab PO BID Qty: 6 0RF albuterol sulfate 90 mcg/actuation HFA aerosol inhaler 2 inh inhalation Q8H PRN (Reason: shortness of breath or wheezing) Qty: 8.5 1RF metoclopramide HCl [Reglan] 5 mg tablet 5 mg PO DAILY PRN (Reason: nausea and vomiting) Qty: 7 0RF potassium chloride 10 mEq tablet extended release 10 meq PO DAILY Qty: 2 0RF Continued metformin 500 mg tablet 500 mg PO BID 0RF methenamine hippurate 1 gram tablet 1 g PO BID Qty: 60 12RF Rx Instructions: 1 pill twice a day with 1 g vitamin C each dose Start after sulfamethoxazole completed ascorbic acid (vitamin C) 1,000 mg tablet 1 g PO BID 0RF meclizine 12.5 mg tablet 12.5 mg PO TID PRN (Reason: Dizziness) 0RF tamsulosin 0.4 mg capsule 0.4 mg PO DAILY Qty: 90 3RF atorvastatin 20 mg tablet 20 mg PO DAILY 0RF Zofran 4 mg Tablet 4 mg PO Q8H PRN (Reason: Nausea) 0RF aspirin 81 mg Tablet,Chewable 81 mg PO DAILY 0RF Discontinued glipizide 5 mg tablet 5 mg PO BID 0RF Discharge Orders: Discharge Order (Routine); Ordered 09/04/21 Ordered By: Jason Mandujano Referrals: Camila Santiago [Primary Care Provider] - 1 week Patient Instructions: Opioid Safety Discharge Attestations Time Spent in Discharge Care*: less than 30 min Quality Metrics Clinical Quality Measures [ No reported AMI, CVA or VTE this stay] Coding Level of Care Code Acute Chg FW DC note Diagnoses Acute UTI N39.0 COVID-19 U07.1 Dehydration E86.0 DKA (diabetic ketoacidosis) E11.10 Hypomagnesemia E83.42 Self-catheterizes urinary bladder Z78.9
[2021-09-04 12:00] VITALS: BP 112/70; PULSE 91; TEMP 36.6; O2SAT 96
[2021-09-04 12:20] LABS: Glucose Point of Care 145 mg/dL (70-110)
[2021-09-04 12:20] LABS: Glucose Point of Care 223 mg/dL (70-110)
[2021-09-04] MEDS: ondansetron 4 MG Tablet PO (13:05)
--- NOTE | 2021-09-04 13:07 | PC.CHAP ---
Pastoral Care Encounter/Spiritual Assessment Type of Contact [] Declined wind technician visit [] Patient/Family/Request visit [] Outpatient visit [] Follow-up visit [] Physician referral [] Code/Alert [] Routine visit [] Staff referral [] Actively dying [] Patient sleeping [] Family support [] [] Out of room [] Palliative care [] [] Receiving care in room [] Pre-surgical visit [] Trauma [] Long length of stay [] ICU visit [] Other: Relational/Emotional Strength [] Patient feels connected with others/family/visitors/staff [] Distress [] Loneliness/isolation [] Abandonment Spirituality of Patient [] Person of Harper [] Attends Taoism of their Harper [] Believes in Prayer [] Reads Bible or Congregation materials [] There are Spiritual issues to be addressed Engineering Mechanic Interventions [] Prayer [] Active listening [] Non-anxious presence [] Spiritual/emotional support [] Crisis/trauma care [] Spiritual counseling [] Bereavement support [] Provided bereavement packet [] Provided Bible/devotional materials [] Provided toy/stuffed animal, coloring book to patient or family member [] Provided Communion [] Anointing/[place] [] Salvation [] Completed spiritual assessment [] Other: Impact on Illness or Injury [] Angry [] Fearful [] Anxious [] Often cries [] Exhaustion [] Unable to work [] Unable to attend sabianist [] Unable to walk/stand [] Unable to read [] Unable to drive [] Unable to eat/drink [] Unable to sleep [] Unable to be with family [] Patient intubated [] Other: Summary isolations Time spent with patient x
--- NOTE | 2021-09-04 14:51 | PC.NURSE ---
Spoke with physician regarding patients abd pain and vomiting. Received orders to hold the discharge and discontinue the fluids.
[2021-09-04 15:42] VITALS: BP 93/59; PULSE 77; O2SAT 96
--- NOTE | 2021-09-04 15:54 | CTR_ITS ---
PROCEDURE INFORMATION: Exam: CT Chest Without Contrast; Diagnostic Exam date and time: 09/04/2021 6:20 PM Age: 66 years old Clinical indication: Nausea and vomiting; Other: Nausea/vomitting; Prior surgery; Surgery date: 6+ months; Surgery type: Stent, back; Patient HX: Continued nausea and vomiting TECHNIQUE: Imaging protocol: Diagnostic computed tomography of the chest without contrast. Sagittal and coronal reformatted images were created and reviewed. Radiation optimization: All CT scans at this facility use at least one of these dose optimization techniques: automated exposure control; mA and/or kV adjustment per patient size (includes targeted exams where dose is matched to clinical indication); or iterative reconstruction. COMPARISON: CR (CHEST, ) 09/02/2021 7:37 PM RADIATION DOSE METRICS: Total DLP (mGy-cm): 1057.21 FINDINGS: Trachea: Tracheobronchial structures are patent. Lungs: Few areas of peripheral ground-glass opacification in the right middle lobe and right lower lobe. No pulmonary parenchymal nodules or masses. Pleural spaces: No pneumothorax. No pleural effusion. Heart: The heart is normal in size. Extensive atherosclerotic calcification in the coronary arteries. Esophagus: The esophagus is unremarkable. Mediastinal space: No mediastinal hematoma. No pneumomediastinum. Lymph nodes: No lymphadenopathy. Vasculature: Mild atherosclerotic changes in the visualized arteries. No evidence for aortic aneurysm. Bones/joints: Degenerative changes in the spine and shoulders. Soft tissues: No acute abnormality in the extra-abdominal soft tissues. PROCEDURE INFORMATION: Exam: CT Abdomen And Pelvis Without Contrast Exam date and time: 09/04/2021 6:20 PM Age: 66 years old Clinical indication: Nausea and vomiting; Other: Nausea/vomitting; Prior surgery; Surgery date: 6+ months; Surgery type: Stent, back; Patient HX: Continued nausea and vomiting TECHNIQUE: Imaging protocol: Computed tomography of the abdomen and pelvis without contrast. Sagittal and coronal reformatted images were created and reviewed. Radiation optimization: All CT scans at this facility use at least one of these dose optimization techniques: automated exposure control; mA and/or kV adjustment per patient size (includes targeted exams where dose is matched to clinical indication); or iterative reconstruction. COMPARISON: CT abdomen pelvis w con* [id number] 09/02/2021 10:10 PM RADIATION DOSE METRICS: Total DLP (mGy-cm): 1057.21 FINDINGS: Limitations: Evaluation of solid organs and vasculature is limited without intravenous contrast. Liver: The liver is unremarkable. Gallbladder and bile ducts: The gallbladder is unremarkable. No biliary ductal dilatation. Pancreas: The pancreas is unremarkable. No pancreatic ductal dilatation. Spleen: The spleen is unremarkable. Adrenal glands: The right and left adrenal glands are unremarkable. Kidneys and ureters: Two nonobstructing stones in the right kidney, the larger measures 3.0 mm (series 3, image 76). The left kidney is unremarkable. The right and left ureters are unremarkable. Stomach and bowel: No obstruction. No mucosal thickening. Appendix: Stable changes consistent with a previous appendectomy. Intraperitoneal space: No free intraperitoneal air. No ascites. No loculated fluid collections to suggest an abscess. Vasculature: Stable extensive atherosclerotic calcifications in the visualized arteries. No evidence for aortic aneurysm. Lymph nodes: No lymphadenopathy. Urinary bladder: Increased density layering in the bladder that may represent residual contrast from previous CT scan. Stable diffuse, mild wall thickening of the bladder. Reproductive: Stable mild enlargement of the prostate gland. Nonspecific parenchymal calcifications in the prostate gland. Bones/joints: Degenerative changes in the spine, sacroiliac joints, and hips. Soft tissues: Areas of focal subcutaneous emphysema that may represent sequela of prior injections, these are new compared with the previous study. CT/[place] [id number] IMPRESSION: 1. Few peripheral areas of ground-glass opacification in the middle lobe and right lower lobe. Findings are concerning for pneumonia, including COVID-19 pneumonia. Recommend clinical correlation. Recommend followup chest imaging to insure resolution of these findings. 2. Incidental/nonacute findings are listed in the report. IMPRESSION: 1. Stable diffuse, mild wall thickening of the bladder. In the correct clinical setting, this may suggest cystitis. Recommend correlation with laboratory findings. Alternatively, this may be secondary to chronic outlet obstruction. 2. Two nonobstructing stones in the right kidney. 3. Incidental/nonacute findings are listed in the report.
--- NOTE | 2021-09-04 15:59 | P.PN_ITS ---
Subjective Subjective: Yesterday when I discharge him in the morning patient started having emesis in the afternoon, CT abdomen pelvis did not show any obstruction no signs of gallbladder disease Patient was started on clear liquid diet, he did respond very well to Reglan Vitals/I&O/Wt Last Vital Signs Temp 98 F 09/04/21 12:00 Pulse 77 09/04/21 15:42 Resp 18 09/04/21 08:00 BP 93/59 09/04/21 15:42 Pulse Ox 96 09/04/21 15:42 09/04/21 09/04/21 09/04/21 06:59 14:59 22:59 Intake Total 240 / 1240 390 / 390 Output Total / 2024 Balance -560 / -785 390 / 390 Weight last 48 hrs Weight 65.771 kg Physical Exam Narrative: No active chest pain or shortness of breath Currently satting well on room air Afebrile No active emesis Abdomen is soft No diarrhea Awake and alert Malnourished, muscle mass loss No audible stridor or wheezing Data : 09/05/21 04:20 09/05/21 04:20 Micro: Microbiology 09/02/21 20:05 Urine Culture - Preliminary Urine,Clean Catch Staphylococcus species 09/02/21 19:48 Blood Culture - Preliminary Blood NEGATIVE TO DATE 09/02/21 19:44 Blood Culture - Preliminary Blood NEGATIVE TO DATE A&P Assessment and plan (1) Hypomagnesemia: Status: Acute (2) Self-catheterizes urinary bladder: Status: Acute (3) Acute UTI: Status: Acute (4) Dehydration: Status: Acute (5) COVID-19: Status: Acute Plan COVID-19 related gastropathy No active obstruction no gallbladder disease Responds very well to Reglan CT abdomen pelvis unremarkable Not requiring oxygen Hypokalemia, hypomagnesemia: Repleted Hypotensive: Secondary to dehydration: Continue fluid hydration at 50 mill per hour Patient is full code Malnourished, protein calorie malnourishment to mild extent, will add supplemental protein shakes Plan to discharge him tomorrow morning Full code Advance diet to full liquid Attestations Medical Necessity Statement*: Discharge tomorrow Time Spent in Patient Care: 30 Coding Level of Care Code Acute 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
[2021-09-04] MEDS: promethazine 25 mg/mL SDV 1 mL 12.5 MG IM (16:28)
[2021-09-04 17:16] LABS: Glucose Point of Care 235 mg/dL (70-110)
--- NOTE | 2021-09-04 17:40 | PC.NURSE ---
Physician orders Reglan 5mg Q4h PRN alternate with zofran
[2021-09-04] MEDS: lactated ringers 1,000 ML 999 ML IV (18:39)
[2021-09-04 20:00] VITALS: BP 120/65; PULSE 80; RESP 20; TEMP 36.7; O2SAT 98
[2021-09-04] MEDS: metoclopramide 5 mg/mL SDV 2 mL IVP (20:46)
[2021-09-04] MEDS: cefTRIAXone 1,000 MG in sodium chloride 0.9% (plus) 50 ML 100 MG IV (20:51)
[2021-09-04 21:36] LABS: Glucose Point of Care 279 mg/dL (70-110)
[2021-09-04] MEDS: insulin glargine 100 units/1 mL 10 UNIT SUBCUT (22:15)
[2021-09-05] VITALS (7 sets, daily range): BP systolic 88–150; BP diastolic 52–78; PULSE 56–99; RESP 15–17; TEMP 36.3–37.1; O2SAT 95–99
[2021-09-05 00:33] LABS: Glucose Point of Care 215 mg/dL (70-110)
[2021-09-05] MEDS: pantoprazole 40 mg SDV IVP (00:46)
[2021-09-05] MEDS: insulin lispro 100 unit/1 mL SUBCUT (00:47)
[2021-09-05] MEDS: enoxaparin 40 mg/0.4 mL Syringe SUBCUT (00:47)
[2021-09-05 04:48] LABS: Basophils % 0.2 %; Hematocrit 36.2 % (42.0-52.0); Hemoglobin 12.8 g/dL (11.7-16.6); Lymphocytes # 1.1 10^3/uL (0.8-4.8); Lymphocytes % 22.3 %; Mean Corpuscular HGB Conc 35.4 g/dL (30.0-36.0); Mean Corpuscular Hemoglobin 28.3 pg (28.0-34.0); Mean Corpuscular Volume 80.1 fl (80-94); Mean Platelet Volume 10.6 fL (7.4-10.4); Monocytes # 0.4 10^3/uL (0.2-0.9); Monocytes % 8.4 %; Neutrophils # 3.52 10^3/uL (1.8-7.7); Neutrophils % 68.7 %; Nucleated Red Blood Cells % 0 %; Platelet Count 176 10^3/cmm (130-400); Red Blood Count 4.52 10^6/uL (4.1-5.3); Red Cell Distribution Width 12.6 % (12.1-15.1); White Blood Count 5.1 10^3/uL (4.0-10.0)
[2021-09-05 05:11] LABS: Alanine Aminotransferase 29 U/L (0-41); Albumin Level 3.7 g/dL (3.5-5.2); Alkaline Phosphatase 118 IU/L (40-130); Aspartate Amino Transferase 27 U/L (0-40); Blood Urea Nitrogen 24 mg/dL (8-23); Calcium 8.9 mg/dL (8.5-10.5); Carbon Dioxide 28 mmol/L (22-29); Chloride 98 mmol/L (98-107); Globulin 2.9 g/dL (1.3-4.6); Glomerular Filtration Rate 112.1 mL/min (90-130); Glucose 123 mg/dL (65-115); Magnesium 1.6 mg/dL (1.7-2.3); Osmolality Calculated 283 mOsm/kg (285-295); Sodium 134 mmol/L (136-145); Total Bilirubin 0.3 mg/dL (0.15-1.2); Total Protein 6.6 g/dL (6.6-8.7)
[2021-09-05] MEDS: potassium chloride oral liq 20 mEq/15 mL UDC PO (06:43)
[2021-09-05 08:36] LABS: Glucose Point of Care 94 mg/dL (70-110)
[2021-09-05] MEDS: amoxicillin-clav 875-125 mg Tablet 1 TAB PO ×2 (09:02→18:03)
[2021-09-05] MEDS: atorvastatin 40 mg Tablet 20 MG PO (09:02)
[2021-09-05] MEDS: aspirin 81 mg Chew Tablet PO (09:03)
[2021-09-05] MEDS: dexamethasone 4 mg Tablet 6 MG PO (09:03)
[2021-09-05] MEDS: potassium chloride ER 20 mEq Tablet PO (09:22)
[2021-09-05] MEDS: tamsulosin 0.4 mg Capsule PO (09:22)
[2021-09-05 12:00] LABS: Glucose Point of Care 167 mg/dL (70-110)
[2021-09-05] MEDS: lactated ringers 500 ML 999 ML IV (12:57)
[2021-09-05] MEDS: sodium chloride 0.9% 1,000 ML 50 ML IV (12:58)
[2021-09-05 16:57] LABS: Glucose Point of Care 272 mg/dL (70-110)
[2021-09-05] MEDS: magnesium oxide 400 mg tablet PO (18:03)
[2021-09-05] MEDS: ondansetron 4 MG Tablet PO (18:04)
[2021-09-05 20:41] LABS: Glucose Point of Care 314 mg/dL (70-110)
[2021-09-05] MEDS: insulin glargine 100 units/1 mL 10 UNIT SUBCUT (21:07)
[2021-09-05] MEDS: cefTRIAXone 1,000 MG in sodium chloride 0.9% (plus) 50 ML 100 MG IV (21:07)
[2021-09-06 00:30] LABS: Glucose Point of Care 317 mg/dL (70-110)
[2021-09-06] MEDS: insulin lispro 100 unit/1 mL SUBCUT ×2 (00:40→18:29)
[2021-09-06] MEDS: enoxaparin 40 mg/0.4 mL Syringe SUBCUT (00:40)
[2021-09-06] MEDS: pantoprazole 40 mg SDV IVP (00:40)
[2021-09-06 04:00] VITALS: BP 112/55; PULSE 68; RESP 17; TEMP 36.8; O2SAT 97
[2021-09-06 04:39] LABS: Basophils % 0.2 %; Hematocrit 33.8 % (42.0-52.0); Hemoglobin 11.4 g/dL (11.7-16.6); Lymphocytes % 20.6 %; Mean Corpuscular HGB Conc 33.7 g/dL (30.0-36.0); Mean Corpuscular Hemoglobin 28.2 pg (28.0-34.0); Mean Corpuscular Volume 83.7 fl (80-94); Mean Platelet Volume 10.9 fL (7.4-10.4); Monocytes # 0.4 10^3/uL (0.2-0.9); Monocytes % 9.1 %; Neutrophils # 3.36 10^3/uL (1.8-7.7); Neutrophils % 69.9 %; Nucleated Red Blood Cells % 0 %; Platelet Count 160 10^3/cmm (130-400); Red Blood Count 4.04 10^6/uL (4.1-5.3); Red Cell Distribution Width 12.7 % (12.1-15.1); White Blood Count 4.8 10^3/uL (4.0-10.0)
[2021-09-06] MEDS: sodium chloride 0.9% 1,000 ML 50 ML IV (05:09)
[2021-09-06 05:11] LABS: Alanine Aminotransferase 49 U/L (0-41); Albumin Level 3.4 g/dL (3.5-5.2); Alkaline Phosphatase 112 IU/L (40-130); Anion Gap 13.2 (5-19); Aspartate Amino Transferase 41 U/L (0-40); Blood Urea Nitrogen 20 mg/dL (8-23); Calcium 8.2 mg/dL (8.5-10.5); Carbon Dioxide 27 mmol/L (22-29); Chloride 102 mmol/L (98-107); Globulin 2.5 g/dL (1.3-4.6); Glucose 156 mg/dL (65-115); Magnesium 1.6 mg/dL (1.7-2.3); Osmolality Calculated 294 mOsm/kg (285-295); Potassium 3.2 mmol/L (3.5-5.1); Sodium 139 mmol/L (136-145); Total Bilirubin 0.2 mg/dL (0.15-1.2); Total Protein 5.9 g/dL (6.6-8.7)
[2021-09-06] MEDS: potassium chloride oral liq 20 mEq/15 mL UDC 40 MEQ PO (05:38)
[2021-09-06] MEDS: magnesium sulfate premix 2 GM/50 ML PIGGYBACK IV (05:40)
[2021-09-06 06:30] LABS: Glucose Point of Care 103 mg/dL (70-110)
[2021-09-06] MEDS: metoclopramide 5 mg/mL SDV 2 mL IVP ×2 (09:08→13:18)
[2021-09-06] MEDS: potassium chloride oral liq 20 mEq/15 mL UDC 10 MEQ PO (09:09)
[2021-09-06] MEDS: amoxicillin-clav 875-125 mg Tablet 1 TAB PO ×2 (09:10→18:29)
[2021-09-06] MEDS: tamsulosin 0.4 mg Capsule PO (09:10)
[2021-09-06] MEDS: magnesium oxide 400 mg tablet PO ×2 (09:10→18:29)
[2021-09-06] MEDS: dexamethasone 4 mg Tablet 6 MG PO (09:10)
--- NOTE | 2021-09-06 09:47 | PC.SOCIAL ---
IMM update IMM updated with patient. Verbalized an understanding. Copy Pg 2 provided. Initialled, dated, timed, and placed in chart.
--- NOTE | 2021-09-06 10:58 | P.PN_ITS ---
Subjective Subjective: 66-year-old male who was admitted for management and evaluation of recurrent nausea and vomiting he was diagnosed with COVID-19 pneumonia. He is not requiring oxygen. He has been experiencing intermittent vomiting with his food. This morning after taking potassium supplementation he vomited once. CT abdomen pelvis did not show any sign obstruction, no gallbladder disease or acute pathology. No signs of colitis or enteritis. He has been getting supplemental diet in the hospital. He has mild protein calorie malnourishment. Lives alone and his sister who is a nurse willing to take care of him and keep an eye on him. He does not want to go to any senior living. He will be discharged home. I will give him albuterol, Reglan. He remained afebrile, white count 4.8, did not require oxygen at all. Vitals/I&O/Wt Last Vital Signs Temp 98.2 F 09/06/21 04:00 Pulse 68 09/06/21 04:00 Resp 17 09/06/21 04:00 BP 112/55 09/06/21 04:00 Pulse Ox 97 09/06/21 04:00 09/05/21 09/06/21 09/06/21 22:59 06:59 14:59 Intake Total 1322 / 1742 859.167 / 2601.167 150 / 150 Output Total 1200 / 1200 900 / 2100 Balance 122 / 542 -40.833 / 501.167 150 / 150 Weight last 48 hrs Weight 63.095 kg Weight 59.965 kg Physical Exam Narrative: Patient had emesis this morning At this point no active chest pain or shortness of breath Currently on room air Abdomen soft Nonfocal neuro exam Surgery well No acute respiratory distress EOMI, PERRLA Data : 09/06/21 03:59 09/06/21 03:59 Micro: Microbiology 09/02/21 20:05 Urine Culture - Final Urine,Clean Catch Staphylococcus saprophyticus A&P Assessment and plan (1) Hypomagnesemia: Status: Acute (2) DKA (diabetic ketoacidosis): Status: Acute (3) Self-catheterizes urinary bladder: Status: Acute (4) Acute UTI: Status: Acute (5) Dehydration: Status: Acute (6) COVID-19: Status: Acute (7) Vomiting: Status: Acute (8) Kidney stone: Status: Acute Plan COVID-19 related enteritis Recurrent emesis Continue IV fluids and supplements diet CT abdomen pelvis consider cystitis, nonobstructing kidney stones No signs of SBO He is now requiring oxygen Plan is to discharge him once he is able to tolerate his diet Acute on chronic UTI: Most likely staph or is contamination from self cath Afebrile No signs of sepsis BPH no acute symptoms 2 nonobstructing right-sided kidney stones 3 mm, no active pain Full code Continue full liquid diet Attestations Medical Necessity Statement*: Discharge tomorrow Time Spent in Patient Care: 30 Coding Level of Care Code Acute 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
[2021-09-06 11:00] LABS: Glucose Point of Care 118 mg/dL (70-110)
[2021-09-06 12:00] VITALS: BP 128/73; PULSE 69; RESP 16; TEMP 20.5; O2SAT 97
--- NOTE | 2021-09-06 14:02 | XRR_ITS ---
PROCEDURE INFORMATION: Exam: XR Abdomen Exam date and time: 09/06/2021 2:42 PM Age: 66 years old Clinical indication: Vomiting; Additional info: Vomit TECHNIQUE: Imaging protocol: Radiologic exam of the abdomen. Views: Frontal supine view of the abdomen. 1 View. COMPARISON: CT chest [place] [id number] 09/04/2021 6:20 PM FINDINGS: Gastrointestinal tract: No intestinal obstruction. Suture material is seen in the right lower quadrant consistent with prior appendectomy. Vasculature: Arterial calcifications are noted. Bones/joints: Mild degenerative changes are present in the mid to lower lumbar spine. Mild dextrocurvature of the lumbar spine is appreciated, which may be positional. XR/XR KUB portable [id number] IMPRESSION: 1. No intestinal obstruction. 2. Atherosclerosis.
[2021-09-06] MEDS: scopolamine 1.5 Patch 1 PATCH TRANSDERMA (15:18)
[2021-09-06 15:52] VITALS: BP 114/58; PULSE 64; RESP 17; TEMP 36.7; O2SAT 99
[2021-09-06] MEDS: promethazine 25 mg/mL SDV 1 mL 12.5 MG IM (17:20)
[2021-09-06] MEDS: NON-FORMULARY MEDICATION (Methenamine Hippurate 1 gram tablet) 1 EACH PO (18:29)
[2021-09-06 20:00] VITALS: BP 92/55; PULSE 97; RESP 17; TEMP 36.5; O2SAT 99
[2021-09-06 20:46] LABS: Glucose Point of Care 193 mg/dL (70-110)
[2021-09-06 20:46] LABS: Glucose Point of Care 206 mg/dL (70-110)
[2021-09-06] MEDS: insulin glargine 100 units/1 mL 10 UNIT SUBCUT (21:07)
[2021-09-06 23:55] VITALS: BP 109/62; PULSE 97; RESP 17; TEMP 36.4; O2SAT 99
[2021-09-07] VITALS (7 sets, daily range): BP systolic 87–147; BP diastolic 58–97; PULSE 77–102; RESP 14–20; TEMP 36.3–36.9; O2SAT 90–100
[2021-09-07 00:09] LABS: Glucose Point of Care 133 mg/dL (70-110)
[2021-09-07] MEDS: pantoprazole 40 mg SDV IVP ×2 (01:07→13:34)
[2021-09-07] MEDS: enoxaparin 40 mg/0.4 mL Syringe SUBCUT (01:08)
[2021-09-07] MEDS: metoclopramide 5 mg/mL SDV 2 mL IVP ×4 (01:12→22:08)
[2021-09-07] MEDS: sodium chloride 0.9% 1,000 ML 50 ML IV ×2 (01:24→22:22)
[2021-09-07 05:12] LABS: Anion Gap 12.5 (5-19); Blood Urea Nitrogen 17 mg/dL (8-23); Calcium 8.6 mg/dL (8.5-10.5); Carbon Dioxide 30 mmol/L (22-29); Chloride 102 mmol/L (98-107); Glucose 74 mg/dL (65-115); Magnesium 1.8 mg/dL (1.7-2.3); Osmolality Calculated 292 mOsm/kg (285-295); Potassium 3.5 mmol/L (3.5-5.1); Sodium 141 mmol/L (136-145)
[2021-09-07 06:28] LABS: Glucose Point of Care 98 mg/dL (70-110)
[2021-09-07] MEDS: promethazine 25 mg/mL SDV 1 mL 12.5 MG IM (06:55)
[2021-09-07] MEDS: lactated ringers 1,000 ML 999 ML IV ×2 (10:19→11:26)
--- NOTE | 2021-09-07 10:43 | USCV_ITS ---
Brett Dominik Age: 66 Gender: M : 1955 Exam Date: 09/07/2021 14:24 Ordering Phys: Jason Mandujano MD Technologist: Royal Doan [place] [facility] [place]: [place] pain BP: / HR: Rhythm: Sinus Technical Quality: Very technically difficult study MEASUREMENTS (Male / Female) Normal Values FINDINGS Left Ventricle Right Ventricle Right Atrium Left Atrium Mitral Valve Aortic Valve Tricuspid Valve Pulmonic Valve Pericardium Aorta IVC CONCLUSIONS There are no echocardiographic windows for assessment of cardiac structure and function. Yola Marlow MD (Electronically Signed) Final Date: 08 September 2021 07:24 S
--- NOTE | 2021-09-07 11:46 | ANES.PREANE2 ---
Pre-Anesthetic Assessment Height/Weight: Height 1.75 m Weight 62.414 kg Temp Pulse Resp BP Pulse Ox 98 F 79 14 109/68 98 09/07/21 07:59 09/07/21 07:59 09/07/21 07:59 09/07/21 07:59 09/07/21 07:59 Preop Diagnosis: Nausea vomiting with suspected gastroparesis Operation Date: 09/07/21 11:30 Proposed Procedures p EGD(Not Applicable) - Drew Reveles MD Familial anesthetic complications: none Was Beta Ludmila taken within 24 hours: N/A Was Clonidine taken within 24 hours: N/A Pulmonary Exertional Dyspnea and Sleep Apnea (Noted in chart) Denies COPD, KACIE, home O2 CV/HEM Arrythmia, Coronary Artery Disease (s/p stents) and Congestive Heart Failure Syncopal episodes EKG 09/03/21 Interpretive Statements SINUS RHYTHM WITH OCCASIONAL VENTRICULAR PREMATURE COMPLEXES LEFT AXIS DEVIATION? [QRS AXIS < -30] ANTEROSEPTAL MYOCARDIAL INFARCTION , OF INDETERMINATE AGE [40+ ms Q WAVE IN V1-V4] MODERATE T-WAVE ABNORMALITY, CONSIDER LATERAL ISCHEMIA? [-0.1+ mV T WAVE IN I/aVL/V5/V6] Compared to ECG 09/02/2021 21:40:53 No significant changes Electronically Signed On 09-03-2021 21:18:40 CDT by Rafat Weiss M.D. [id number] Stress Test 02/03 ELECTROCARDIOGRAM: BASELINE: Sinus rhythm.? Normal axis.? Poor R wave progression, could be lead placement versus old anterior wall myocardial infarction otherwise no ST-T changes suggestive of ischemia noted. No arrhythmia noted. EXERCISE: After Lexiscan injection, no ST-T changes suggestive of ischemic noted. No arrhythmia noted. CONCLUSION: Please note due to baseline abnormality of the EKG specificity and sensitivity of the EKG portion of LexiScan MIBI stress test will be low 1.? EKG not suggestive of ischemia 2.? Lexiscan injection unremarkable. 3.? Perfusion scan will be documented separately. Nuc Med Study 02/03 ?IMPRESSIONS ?1.? Abnormal myocardial perfusion imaging with large sized infarct noted in ?apical, apical anterior, apical inferior and inferior chaves.? No significant ?ischemia seen. ?2.? LV systolic function is severely reduced with EF of 27% Chronic Renal Insufficiency GI Gastroesophageal Reflux Disease Metabolic Diabetes Mellitus (With end organ dysfunction ) Cystitis BPH Straight caths self Straight cath self for 1 liter just before I evaluated patient DKA on admission [facility] None reported Neuropsych None reported Anesthetic Plan ASA status: 4 Anesthesia: Anesthesia Evaluation, General and MAC Other: I discussed with the patient risks, goals, and benefits of MAC and general anesthesia. We discussed spectrum of MAC anesthesia including conversion to general as well as possibility of recall of intraoperative stimuli including discomfort/pain. Patient agrees to proceed with MAC. Risk of > 500 ml blood loss (7ml/kg in children): No Medications/Allergies Home Medications Medication Instructions Recorded Confirmed Last Taken Type tamsulosin 0.4 mg capsule 0.4 mg PO DAILY #90 cap 08/14/20 09/02/21 09/01/21 Rx metformin 500 mg tablet 500 mg PO BID 10/07/20 09/02/21 09/02/21 History methenamine hippurate 1 gram tablet 1 g PO BID #60 tab 10/07/20 09/02/21 09/02/21 Rx meclizine 12.5 mg tablet 12.5 mg PO TID PRN 12/11/20 09/02/21 Unknown History ascorbic acid (vitamin C) 1,000 mg 1 g PO BID tab 01/28/21 09/02/21 09/02/21 History tablet aspirin 81 mg chewable tablet 81 mg PO DAILY 09/02/21 09/02/21 09/01/21 History atorvastatin 20 mg tablet 20 mg PO DAILY 09/02/21 09/02/21 09/02/21 History ondansetron HCl 4 mg tablet 4 mg PO Q8H PRN 09/02/21 09/02/21 Unknown History albuterol sulfate 90 mcg/actuation 2 inh INHALATION Q8H PRN #8.5 g 09/04/21 Unknown Rx aerosol inhaler amoxicillin 875 mg-potassium 1 tab PO BID #6 tab 09/04/21 Unknown Rx clavulanate 125 mg tablet metoclopramide HCl 5 mg tablet 5 mg PO DAILY PRN #7 tab 09/04/21 Unknown Rx (Reglan) potassium chloride 10 mEq 10 meq PO DAILY #2 tab 09/04/21 Unknown Rx tablet,extended release Allergies Allergy/AdvReac Type Severity Reaction Status Date / Time No Known Allergies Allergy Verified 09/06/21 13:28 Current Medications Generic Name Dose Route Start Last Admin Trade Name To PRN Reason Stop Dose Admin Amoxicillin/Clavulanate Potassium 1 tab 09/03/21 18:00 09/07/21 08:53 Amoxicillin-Clav 875-125 Mg Tablet PO 1 tab BID TRINIDAD Administration Protocol Sodium Chloride 1,000 mls @ 50 mls/hr 09/05/21 11:15 09/07/21 01:24 Sodium Chloride 0.9% IV 50 mls/hr .Q20H TRINIDAD Administration Lactated Ringer's 1,000 mls @ 999 mls/hr 09/07/21 10:15 09/07/21 11:26 Lactated Ringers IV 09/07/21 12:15 999 mls/hr .Q1H1M TRINIDAD Administration Insulin Glargine 10 unit 09/03/21 00:55 09/06/21 21:07 Insulin Glargine 100 Units/1 Ml SUBCUT 10 unit BEDTIME TRINIDAD Administration Insulin Human Lispro 0 unit 09/03/21 01:00 09/07/21 07:22 Insulin Lispro 100 Unit/1 Ml SUBCUT Not Given Q6H [facility] Protocol Magnesium Oxide 400 mg 09/05/21 18:00 09/07/21 08:53 Magnesium Oxide 400 Mg Tablet PO 400 mg BID TRINIDAD Administration Metoclopramide HCl 5 mg 09/04/21 17:41 09/07/21 08:54 Metoclopramide 5 Mg/Ml Sdv 2 Ml IVP 5 mg Q4H PRN Administration NAUSEA AND VOMITING Non-Formulary Medication 1 gm 09/03/21 09:00 09/07/21 08:53 Methenamine Hippurate PO 1 gm BID TRINIDAD Administration Ondansetron HCl 4 mg 09/03/21 00:52 09/05/21 18:04 Ondansetron 4 Mg Tablet PO 4 mg Q8H PRN Administration Nausea Potassium Chloride 20 meq 09/07/21 09:00 09/07/21 08:54 Potassium Chloride Er 20 Meq Tablet PO 20 meq DAILY TRINIDAD Administration Promethazine HCl 12.5 mg 09/06/21 14:03 09/07/21 06:55 Promethazine 25 Mg/Ml Sdv 1 Ml IM 12.5 mg Q6H PRN Administration NAUSEA Scopolamine 1 patch 09/06/21 14:55 09/06/21 15:18 Scopolamine 1.5 Patch TRANSDERMA 1 patch Q3D TRINIDAD Administration Tamsulosin HCl 0.4 mg 09/03/21 09:00 09/07/21 08:54 Tamsulosin 0.4 Mg Capsule PO 0.4 mg DAILY TRINIDAD Administration PFSH Anesthesia Medical History BPH loc w urin obs/LUTS CAD (coronary artery disease) Detrusor dysfunction Diabetes Dyspnea on exertion GERD (gastroesophageal reflux disease) Hyperlipidemia Obstructive sleep apnea Self-catheterizes urinary bladder Urinary retention Surgical History History of back surgery History of surgery on wrist Hx of heart artery stent Family History Mother , AT AGE 57 Emphysema lung Father , AT AGE 47 Motor vehicle accident Social History Smoking and tobacco status: former smoker Alcohol intake: current Alcohol intake frequency: holidays/special occasions only Marital status: / Current occupational status: retired History of recent travel: No Data Anesthesia : 09/06/21 03:59 09/07/21 03:59 Short CBC 09/06/21 Range/Units 03:59 WBC 4.8 (4.0-10.0) 10^3/uL Hgb 11.4 L (11.7-16.6) g/dL Hct 33.8 L (42.0-52.0) % MCV 83.7 (80-94) fl Plt Count 160 (130-400) 10^3/cmm Neut % (Auto) 69.9 % Neut # (Auto) 3.36 (1.8-7.7) 10^3/uL BMP 09/06/21 09/07/21 03:59 03:59 Sodium 139 141 Potassium 3.2 L 3.5 Chloride 102 102 Carbon Dioxide 27 30 H BUN 20 17 Creatinine 0.6 L 0.6 L Glucose 156 H 74 Calcium 8.2 L 8.6 Liver Function 09/06/21 Range/Units 03:59 Total Bilirubin 0.2 (0.15-1.2) mg/dL AST 41 H (0-40) U/L ALT 49 H (0-41) U/L Alkaline Phosphatase 112 (40-130) IU/L Albumin 3.4 L (3.5-5.2) g/dL Cardiac Studies: Echocardiogram 12/02/20 Sestamibi Stress Test (Cardiology) 02/10/21 Cardiac Event Monitor 12/12/20
--- NOTE | 2021-09-07 12:25 | PM.CONSULT ---
Providers/Reason For Consult Consulting Physician/Specialty*: General Surgery Dr. Reveles Reason for Consult*: Nausea and vomiting Attending Physician: Jason Mandujano MD Primary Care Provider: Camila Santiago History of Present Illness History of Present Illness Dominik West is a 66 year old male who presented to the ER with complaints of nausea and vomiting with associated abdominal pain. Patient states that his been dealing with intermittent episodes of nausea and vomiting for the last 1 year. Denies any hematemesis, melena. He had a CT abdomen pelvis which showed no acute pathology except for cystitis which is most likely secondary to self-catheterization. No prior abdominal surgeries. No history of PUD or prior EGD. Review of Systems General: Reports: 10 or more systems reviewed and unremarkable except in HPI and below Medications/Allergies Home Medications Medication Instructions Recorded Confirmed Last Taken Type tamsulosin 0.4 mg capsule 0.4 mg PO DAILY #90 cap 08/14/20 09/02/21 09/01/21 Rx metformin 500 mg tablet 500 mg PO BID 10/07/20 09/02/21 09/02/21 History methenamine hippurate 1 gram tablet 1 g PO BID #60 tab 10/07/20 09/02/21 09/02/21 Rx meclizine 12.5 mg tablet 12.5 mg PO TID PRN 12/11/20 09/02/21 Unknown History ascorbic acid (vitamin C) 1,000 mg 1 g PO BID tab 01/28/21 09/02/21 09/02/21 History tablet aspirin 81 mg chewable tablet 81 mg PO DAILY 09/02/21 09/02/21 09/01/21 History atorvastatin 20 mg tablet 20 mg PO DAILY 09/02/21 09/02/21 09/02/21 History ondansetron HCl 4 mg tablet 4 mg PO Q8H PRN 09/02/21 09/02/21 Unknown History albuterol sulfate 90 mcg/actuation 2 inh INHALATION Q8H PRN #8.5 g 09/04/21 Unknown Rx aerosol inhaler amoxicillin 875 mg-potassium 1 tab PO BID #6 tab 09/04/21 Unknown Rx clavulanate 125 mg tablet metoclopramide HCl 5 mg tablet 5 mg PO DAILY PRN #7 tab 09/04/21 Unknown Rx (Reglan) potassium chloride 10 mEq 10 meq PO DAILY #2 tab 09/04/21 Unknown Rx tablet,extended release Allergies Allergy/AdvReac Type Severity Reaction Status Date / Time No Known Allergies Allergy Verified 09/06/21 13:28 Current Medications Generic Name Dose Route Start Last Admin Trade Name Burakq PRN Reason Stop Dose Admin Amoxicillin/Clavulanate Potassium 1 tab 09/03/21 18:00 09/07/21 08:53 Amoxicillin-Clav 875-125 Mg Tablet PO 1 tab BID TRINIDAD Administration Protocol Sodium Chloride 1,000 mls @ 50 mls/hr 09/05/21 11:15 09/07/21 01:24 Sodium Chloride 0.9% IV 50 mls/hr .Q20H TRINIDAD Administration Insulin Glargine 10 unit 09/03/21 00:55 09/06/21 21:07 Insulin Glargine 100 Units/1 Ml SUBCUT 10 unit BEDTIME TRINIDAD Administration Insulin Human Lispro 0 unit 09/03/21 01:00 09/07/21 07:22 Insulin Lispro 100 Unit/1 Ml SUBCUT Not Given Q6H [facility] Protocol Magnesium Oxide 400 mg 09/05/21 18:00 09/07/21 08:53 Magnesium Oxide 400 Mg Tablet PO 400 mg BID TRINIDAD Administration Metoclopramide HCl 5 mg 09/04/21 17:41 09/07/21 08:54 Metoclopramide 5 Mg/Ml Sdv 2 Ml IVP 5 mg Q4H PRN Administration NAUSEA AND VOMITING Non-Formulary Medication 1 gm 09/03/21 09:00 09/07/21 08:53 Methenamine Hippurate PO 1 gm BID TRINIDAD Administration Ondansetron HCl 4 mg 09/03/21 00:52 09/05/21 18:04 Ondansetron 4 Mg Tablet PO 4 mg Q8H PRN Administration Nausea Potassium Chloride 20 meq 09/07/21 09:00 09/07/21 08:54 Potassium Chloride Er 20 Meq Tablet PO 20 meq DAILY TRINIDAD Administration Promethazine HCl 12.5 mg 09/06/21 14:03 09/07/21 06:55 Promethazine 25 Mg/Ml Sdv 1 Ml IM 12.5 mg Q6H PRN Administration NAUSEA Scopolamine 1 patch 09/06/21 14:55 09/06/21 15:18 Scopolamine 1.5 Patch TRANSDERMA 1 patch Q3D TRINIDAD Administration Tamsulosin HCl 0.4 mg 09/03/21 09:00 09/07/21 08:54 Tamsulosin 0.4 Mg Capsule PO 0.4 mg DAILY TRINIDAD Administration PFSH Acute PFSH: Medical History BPH loc w urin obs/LUTS CAD (coronary artery disease) Detrusor dysfunction Diabetes Dyspnea on exertion GERD (gastroesophageal reflux disease) Hyperlipidemia Obstructive sleep apnea Self-catheterizes urinary bladder Urinary retention Surgical History History of back surgery History of surgery on wrist Hx of heart artery stent Family History Mother , AT AGE 57 Emphysema lung Father , AT AGE 47 Motor vehicle accident Social History Smoking and tobacco status: former smoker Alcohol intake: current Alcohol intake frequency: holidays/special occasions only Marital status: / Current occupational status: retired History of recent travel: No Vitals/I&O/Wt Last Vital Signs Temp 98 F 09/07/21 07:59 Pulse 79 09/07/21 07:59 Resp 14 09/07/21 07:59 BP 109/68 09/07/21 07:59 Pulse Ox 98 09/07/21 07:59 09/06/21 09/07/21 09/07/21 22:59 06:59 14:59 Intake Total 240 / 1750 1000 / 1750 1000 / 1000 Output Total 1425 / 1775 350 / 1775 800 / 800 Balance -1185 / -25 650 / -25 200 / 200 Weight last 48 hrs Weight 137 lb 9.6 oz Weight 139 lb 1.6 oz Physical Exam Narrative: HEENT: Normocephalic Eye: Sclera /conjunctiva normal Abdomen: Soft to palpation, mildly tender, no guarding or rigidity Neurological: Oriented to place person and time Skin: Intact, no lesions appreciated on gross exam Data : 09/06/21 03:59 09/07/21 03:59 A&P Assessment and plan (1) Vomitin-year-old male with multiple comorbidities, EF of 25%, now insulin-dependent diabetic who has been dealing with nausea and vomiting for over a year. Patient could not tolerate a gastric emptying study performed for work-up for gastroparesis. We will therefore plan for EGD under MAC today. Procedure, risks, benefits and alternatives have been discussed with the patient who wishes to proceed with surgery. If EGD does not show significant pathology patient may benefit from a HIDA scan to rule out biliary dyskinesia since his symptoms have been ongoing for over a year. 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
[2021-09-07] MEDS: sodium chloride 0.9% 1,000 ML 30 ML IV (12:34)
--- NOTE | 2021-09-07 12:39 | PM.PN ---
Subjective Subjective: This morning patient had 1 episode of emesis he was not able to finish gastric emptying study, I have requested Dr. Reveles for EGD for biopsy Patient is hypotensive we will give him 2 L LR bolus I have also requested echo He is on room air BMP unremarkable Mild contraction alkalosis Vitals/I&O/Wt Last Vital Signs Temp 98 F 09/07/21 07:59 Pulse 79 09/07/21 07:59 Resp 14 09/07/21 07:59 BP 109/68 09/07/21 07:59 Pulse Ox 98 09/07/21 07:59 09/06/21 09/07/21 09/07/21 22:59 06:59 14:59 Intake Total 240 / 750 1000 / 1750 1000 / 1000 Output Total 1425 / 1425 350 / 1775 1300 / 1300 Balance -1185 / -675 650 / -25 -300 / -300 Weight last 48 hrs Weight 62.414 kg Weight 63.095 kg Physical Exam Narrative: Cachectic, malnourished Dehydrated Awake and alert Currently on room air No audible stridor or wheezing Blood pressure improved with IV fluids Intermittent emesis Abdomen tender on palpation midepigastric region Data : 09/06/21 03:59 09/07/21 03:59 A&P Assessment and plan (1) Kidney stone: Status: Acute (2) Vomiting: Status: Acute (3) Hypomagnesemia: Status: Acute (4) DKA (diabetic ketoacidosis): Status: Acute (5) Self-catheterizes urinary bladder: Status: Acute (6) Acute UTI: Status: Acute (7) Dehydration: Status: Acute Plan Cyclical vomiting syndrome Concern for diabetic gastroparesis Hemoglobin A1c is 8.7 He could not finish gastric emptying study I requested Dr. Reveles for an EGD he still n.p.o. 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
--- NOTE | 2021-09-07 12:49 | ANE.PACU2 ---
Inpatient post-anesthesia follow up: Airway intact: Yes Vital signs: Temperature 98 F Pulse Rate 79 Respiratory Rate 14 Blood Pressure 109/68 Pulse Oximetry 98 Oxygen Delivery Me thod Room Air Oxygen Flow Rate Fraction of Inspir ed Oxygen Hydration adequate: Yes Nausea and vomiting: No Pain level: 1 Mental status: Baseline
[2021-09-07 13:11] LABS: Glucose Point of Care 88 mg/dL (70-110)
[2021-09-07] MEDS: ondansetron 2 mg/ML SDV 2 mL 4 MG IVP (15:14)
[2021-09-07 17:09] LABS: Glucose Point of Care 109 mg/dL (70-110)
[2021-09-07] MEDS: insulin glargine 100 units/1 mL 10 UNIT SUBCUT (22:06)
[2021-09-08] VITALS: BP 102/62; PULSE 76; RESP 76; TEMP 36.9; O2SAT 96
[2021-09-08 04:00] VITALS: BP 109/57; PULSE 77; RESP 18; TEMP 36.6; O2SAT 96
[2021-09-08] MEDS: pantoprazole 40 mg SDV IVP ×2 (04:46→14:44)
[2021-09-08] MEDS: metoclopramide 5 mg/mL SDV 2 mL IVP ×3 (05:02→17:11)
[2021-09-08 06:01] LABS: Eosinophils % 0.2 %; Hematocrit 33.9 % (42.0-52.0); Hemoglobin 11.8 g/dL (11.7-16.6); Lymphocytes # 1.1 10^3/uL (0.8-4.8); Lymphocytes % 19.8 %; Mean Corpuscular HGB Conc 34.8 g/dL (30.0-36.0); Mean Corpuscular Hemoglobin 28.4 pg (28.0-34.0); Mean Corpuscular Volume 81.7 fl (80-94); Mean Platelet Volume 10.7 fL (7.4-10.4); Monocytes # 0.5 10^3/uL (0.2-0.9); Neutrophils # 3.77 10^3/uL (1.8-7.7); Neutrophils % 70.4 %; Nucleated Red Blood Cells % 0 %; Platelet Count 159 10^3/cmm (130-400); Red Blood Count 4.15 10^6/uL (4.1-5.3); Red Cell Distribution Width 12.6 % (12.1-15.1); White Blood Count 5.4 10^3/uL (4.0-10.0)
[2021-09-08 06:26] LABS: Blood Urea Nitrogen 16 mg/dL (8-23); Calcium 8.2 mg/dL (8.5-10.5); Carbon Dioxide 26 mmol/L (22-29); Chloride 101 mmol/L (98-107); Glomerular Filtration Rate 96.1 mL/min (90-130); Glucose 118 mg/dL (65-115); Osmolality Calculated 284 mOsm/kg (285-295); Sodium 136 mmol/L (136-145)
[2021-09-08 07:36] VITALS: BP 109/67; PULSE 88; RESP 16; TEMP 36.7; O2SAT 98
[2021-09-08 08:11] LABS: Glucose Point of Care 72 mg/dL (70-110)
--- NOTE | 2021-09-08 10:49 | PC.SOCIAL ---
Imm update Copy of page 2 of IMM given to patient, patient verbalized understanding. Copy in chart Initialed, dated and timed.
--- NOTE | 2021-09-08 11:41 | P.DS_ITS ---
Discharge Providers Date of Admission: 09/03/21 07:00 Date of Discharge: September 08, 2021 Attending Provider at Admission: Rl Duenas Attending Provider at Discharge: Jason Mandujano MD Primary Care Provider: Camila Santiago Diagnoses at Discharge Discharge Diagnosis (1) Vomiting: Status: Acute Reason for Visit Reason for Visit: N/V/ Dehydrated Hospital Course Hospital Course 66-year male who was admitted to the hospital for management evaluation nausea and vomiting related to COVID-19. He did not require any oxygen during his hospitalization. His diarrhea improved as well. We were not able to check C. difficile because his diarrhea stopped. Head CT unremarkable chest x-ray unremarkable abdomen pelvis CT scan showed cystitis related changes and nonobstructive kidney stone. Previous urine culture showed MRSA which I think is due to self-catheterization and contamination. It is sensitive to Augmentin. He did have mild protein calorie malnourishment. Patient suffers from cyclical vomiting. He has been using marijuana at home. He has been suffering from the cyclical vomiting for last 1 year at least. As per his daughter. He has stopped using insulin. He is only on metformin for hemoglobin A1c 8.7 my suspicion is very high for diabetic gastroparesis. He is already suffering from neurogenic bladder because of neuropathy. I did safety counselor her family and the patient that he will need low-dose Lantus because he is almost near 9. Patient had extensive work-up for his recurrent emesis. He could not finish gastric emptying study because of his active emesis, he was not able to tolerate the diet. Dr. Reveles was consulted for EGD. EGD was unremarkable other than gastritis. Biopsy was not taken because of normal mucosa as per Dr. Reveles. No signs of obstruction or stricture. Echocardiogram could not be finished because of poor ultrasonic windows. Patient never complained of chest pain EKG did not show ischemic or infarctive changes. His abdominal CT scan was repeated twice which was unremarkable. He does have cystitis related changes. KUB x-ray was done as well because of his persistent symptoms that did not show any ileus or obstruction. Patient is extremely cachectic, malnourished, he can advance his diet gradually at home. He did respond to some extent with scheduled Reglan doses. He does not respond to Zofran. His potassium will be repleted. No signs of cholecystitis or gallstones, I would do HIDA scan before his discharge to complete my work-up. I did safety counselor patient that he might need a gastric pacemaker if cyclical vomiting does not improve because he is at risk of further dehydration deterioration protein calorie malnourishment and cachexia. And [facility] be better equipped for a gastric pacemaker if he gets recurrent symptoms. Physical Exam Narrative: Cachectic, malnourished Dehydrated Awake and alert Currently on room air No audible stridor or wheezing Blood pressure improved with IV fluids Intermittent emesis Abdomen tender on palpation midepigastric region Discharge Data Studies Completed and Pending Completed Studies During Hospitalization Category Date Time Status CT abdomen pelvis w con* [id number] Urgent Cat Scan 09/02/21 19:[address] chest abdomen pelvis [[place] [id number] Cat Scan 09/04/21 15:54 Completed ] Stat CT head wo con* [id number] Urgent Cat Scan 09/02/21 19:28 Completed XR KUB portable [id number] Stat Exams 09/06/21 14:02 Completed XR chest 1V portable [id number] Urgent Exams 09/02/21 19:28 Completed CV. echo complete* [id number] Routine Ultrasound 09/07/21 10:43 Completed Pending at discharge Category Date Time Status CDIFF [Clostridioides Difficile PCR] Routine Lab 09/03/21 13:49 Uncollected NM hepatobiliary w phar* [id number] Routine Nuc Med 09/08/21 12:50 Ordered Radiology Impressions Abdomen/Pelvis CT 09/02/21 19:28 IMPRESSION: 1. Circumferential wall thickening of the bladder and mild symmetric wall thickening of both ureters suspicious for urinary tract infection. Correlate with urinalysis. 2. A couple punctate nonobstructing stones noted in the right kidney. Chest X-Ray 09/02/21 19:28 IMPRESSION: No acute findings. Head CT 09/02/21 19:28 IMPRESSION: No acute intracranial abnormality. Chest/Abdomen/Pelvis CT 09/04/21 15:54 IMPRESSION: 1. Few peripheral areas of ground-glass opacification in the middle lobe and right lower lobe. Findings are concerning for pneumonia, including COVID-19 pneumonia. Recommend clinical correlation. Recommend followup chest imaging to insure resolution of these findings. 2. Incidental/nonacute findings are listed in the report. IMPRESSION: 1. Stable diffuse, mild wall thickening of the bladder. In the correct clinical setting, this may suggest cystitis. Recommend correlation with laboratory findings. Alternatively, this may be secondary to chronic outlet obstruction. 2. Two nonobstructing stones in the right kidney. 3. Incidental/nonacute findings are listed in the report. ADDENDUM: 09/04/211956 Per report, the patient is COVID-19 positive. Urgent results were discussed with Dr. Bruce on 09/04/2021 at 7:54 PM CDT. KUB X-Ray 09/06/21 14:02 IMPRESSION: 1. No intestinal obstruction. 2. Atherosclerosis. Laboratory Results WBC 5.4 10^3/uL (4.0-10.0) 09/08/21 05:33 RBC 4.15 10^6/uL (4.1-5.3) 09/08/21 05:33 Hgb 11.8 g/dL (11.7-16.6) 09/08/21 05:33 Hct 33.9 % (42.0-52.0) L 09/08/21 05:33 MCV 81.7 fl (80-94) 09/08/21 05:33 MCH 28.4 pg (28.0-34.0) 09/08/21 05:33 MCHC 34.8 g/dL (30.0-36.0) 09/08/21 05:33 RDW 12.6 % (12.1-15.1) 09/08/21 05:33 Plt Count 159 10^3/cmm (130-400) 09/08/21 05:33 MPV 10.7 fL (7.4-10.4) H 09/08/21 05:33 Neut % (Auto) 70.4 % 09/08/21 05:33 Lymph % (Auto) 19.8 % 09/08/21 05:33 Elliott % (Auto) 9.0 % 09/08/21 05:33 Eos % (Auto) 0.2 % 09/08/21 05:33 Baso % (Auto) 0.0 % 09/08/21 05:33 Neut # (Auto) 3.77 10^3/uL (1.8-7.7) 09/08/21 05:33 Lymph # (Auto) 1.1 10^3/uL (0.8-4.8) 09/08/21 05:33 Elliott # (Auto) 0.5 10^3/uL (0.2-0.9) 09/08/21 05:33 Eos # (Auto) 0.0 10^3/uL (0.0-0.8) 09/08/21 05:33 Baso # (Auto) 0.0 10^3/uL (0.0-0.1) 09/08/21 05:33 Nucleated RBC % (auto) 0 % 09/08/21 05:33 Nucleated RBCs # 0.0 /100WBC 09/08/21 05:33 D-Dimer 0.57 ug/mIFEU (0-0.59) 09/03/21 04:20 Specimen Type Arterial 09/02/21 21:10 Sample Site Brachial, left 09/02/21 21:10 ABG pH 7.45 (7.35-7.45) 09/02/21 21:10 ABG pCO2 34.7 mmHg (35-45) L 09/02/21 21:10 ABG pO2 83.5 mmHg (80.0-100.0) 09/02/21 21:10 ABG HCO3 23.8 mmol/L (22-26) 09/02/21 21:10 ABG Base Excess 0.1 mmol/L (-2.0-2.0) 09/02/21 21:10 Jomar Test Pos 09/02/21 21:10 Hematocrit 39.4 % (42-52) L 09/02/21 21:10 O2 Delivery Device None 09/02/21 21:10 Visitor Service Assistant ID Hensa 09/02/21 21:10 Sodium 136 mmol/L (136-145) 09/08/21 05:33 Potassium 3.0 mmol/L (3.5-5.1) L 09/08/21 05:33 Chloride 101 mmol/L (98-107) 09/08/21 05:33 Carbon Dioxide 26 mmol/L (22-29) 09/08/21 05:33 Anion Gap 12.0 (5-19) 09/08/21 05:33 BUN 16 mg/dL (8-23) 09/08/21 05:33 Creatinine 0.8 mg/dL (0.7-1.2) 09/08/21 05:33 GFR Calculation 96.1 mL/min (90-130) 09/08/21 05:33 Glucose 118 mg/dL (65-115) H 09/08/21 05:33 POC Glucose 72 mg/dL (70-110) 09/08/21 04:14 Estimat Average Glucose 203 09/03/21 04:20 Hemoglobin A1c 8.7 % (4.0-6.0) H 09/03/21 04:20 Calculated Osmolality 284 mOsm/kg (285-295) L 09/08/21 05:33 Lactate 2.8 mmol/L (0.5-2.2) H 09/02/21 19:44 Calcium 8.2 mg/dL (8.5-10.5) L 09/08/21 05:33 Phosphorus 2.0 mg/dL (2.5-4.5) L 09/06/21 03:59 Magnesium 1.8 mg/dL (1.7-2.3) 09/07/21 03:59 Total Bilirubin 0.2 mg/dL (0.15-1.2) 09/06/21 03:59 AST 41 U/L (0-40) H 09/06/21 03:59 ALT 49 U/L (0-41) H 09/06/21 03:59 Alkaline Phosphatase 112 IU/L (40-130) 09/06/21 03:59 Troponin T Baseline 18 ng/L (0-15) H 09/02/21 19:44 Troponin T 120 Minute 17.26 ng/L (0-15) H 09/02/21 21:36 Delta Troponin T -0.74 ABS# (0-10) L 09/02/21 21:36 Troponin T Hi Sens 6Hr 21.17 ng/L (0-15) H 09/03/21 01:32 Troponin T Hi Sens 6Hr Delta 3.17 ng/L (0-12) 09/03/21 01:32 Total Protein 5.9 g/dL (6.6-8.7) L 09/06/21 03:59 Albumin 3.4 g/dL (3.5-5.2) L 09/06/21 03:59 Globulin 2.5 g/dL (1.3-4.6) 09/06/21 03:59 Lipase 61 U/L (13-60) H 09/02/21 19:44 TSH 1.08 uIU/mL (0.27-4.20) 09/02/21 19:44 Urine Color Yellow (Yellow) 09/02/21 20:05 Urine Appearance Sl hazy (CLEAR) 09/02/21 20:05 Urine pH 7 (5-7) 09/02/21 20:05 Ur Specific [place] 1.005 (1.005-1.030) 09/02/21 20:05 Urine Protein Trace (Negative) 09/02/21 20:05 Urine Glucose (UA) Trace (Normal) H 09/02/21 20:05 Urine Ketones 2+ (Negative) H 09/02/21 20:05 Urine Blood Neg (Negative) 09/02/21 20:05 Urine Nitrate Negative (Negative) 09/02/21 20:05 Urine Bilirubin Neg (Negative) 09/02/21 20:05 Urine Urobilinogen Norm mg/dL (Negative) 09/02/21 20:05 Ur Leukocyte Esterase 2+ (Negative) H 09/02/21 20:05 Urine RBC 0-4 /hpf (0-2) H 09/02/21 20:05 Urine WBC Too numerous to cnt /hpf (0-5) H 09/02/21 20:05 Ur Squamous Epith Cells 0-4 /hpf (0-5) H 09/02/21 20:05 Triple Phos Crystals 0-4 /hpf H 09/02/21 20:05 Amorphous Sediment 2+ /hpf 09/02/21 20:05 Urine Bacteria 1+ /hpf (NONE) H 09/02/21 20:05 Serum Ketones Positive (Negative) H 09/02/21 19:44 Influenza Type A Ag Negative (Negative) 09/02/21 20:05 Influenza Type B Ag Negative (Negative) 09/02/21 20:05 SARS-CoV-2 Ag (Rapid) Positive (Negative) H 09/02/21 19:30 Vitals Last Vital Signs Temp 98.0 F 09/08/21 07:36 Pulse 88 09/08/21 07:36 Resp 16 09/08/21 07:36 BP 109/67 09/08/21 07:36 Pulse Ox 98 09/08/21 07:36 Discharge Plan Discharge Patient Disposition: Home Condition: Stable Prescriptions: New amoxicillin-pot clavulanate 875-125 mg Tablet 1 tab PO BID Qty: 6 0RF albuterol sulfate 90 mcg/actuation HFA aerosol inhaler 2 inh inhalation Q8H PRN (Reason: shortness of breath or wheezing) Qty: 8.5 1RF potassium chloride 10 mEq tablet extended release 10 meq PO DAILY Qty: 2 0RF Reglan 5 mg tablet 5 mg PO DAILY PRN (Reason: nausea and vomiting) Qty: 7 0RF Lantus Solostar U-100 Insulin 100 unit/mL (3 mL) insulin pen 5 unit SUBCUT DAILY Qty: 15 3RF (DME) Accu-Chek Fastclix Lancet Drum Misc See Rx Instructions .Route Qty: 100 2RF Rx Instructions: As directed (DME) Accu-Chek Guide test strips Strip See Rx Instructions .Route Qty: 50 2RF Rx Instructions: As directed Reglan 10 mg tablet 10 mg PO Q6H 7 Days Qty: 28 0RF Continued metformin 500 mg tablet 500 mg PO BID 0RF methenamine hippurate 1 gram tablet 1 g PO BID Qty: 60 12RF Rx Instructions: 1 pill twice a day with 1 g vitamin C each dose Start after sulfamethoxazole completed ascorbic acid (vitamin C) 1,000 mg tablet 1 g PO BID 0RF meclizine 12.5 mg tablet 12.5 mg PO TID PRN (Reason: Dizziness) 0RF tamsulosin 0.4 mg capsule 0.4 mg PO DAILY Qty: 90 3RF atorvastatin 20 mg tablet 20 mg PO DAILY 0RF ondansetron HCl 4 mg Tablet 4 mg PO Q8H PRN (Reason: Nausea) 0RF aspirin 81 mg Tablet,Chewable 81 mg PO DAILY 0RF Discontinued glipizide 5 mg tablet 5 mg PO BID 0RF Discharge Orders: Discharge Order (Routine); Ordered 09/08/21 Ordered By: Jason Mandujano Referrals: Camila Santiago [Primary Care Provider] - 09/09/21 9:40 am (will do video visit si nce pt is covid+) Discharge Diet: Clear Liquid Discharge Activity: Increase activity as tolerated Patient Instructions: Metoclopramide (By mouth), Albuterol (By breathing), Potassium Chloride (By mouth), Amoxicillin/Clavulanate Potassium (By mouth) (Augmentin, Augmentin..., Diabetic Gastroparesis (DC), Urinary Tract Infection in Men (DC), Diabetic Ketoacidosis (DC), COVID-19 (Coronavirus Disease 2019) (DC), Opioid Safety Discharge Attestations Time Spent in Discharge Care*: less than 30 min Quality Metrics Clinical Quality Measures [ No reported AMI, CVA or VTE this stay] Coding Level of Care Code Acute Chg FW DC note Diagnoses Vomiting R11.10
[2021-09-08 12:00] VITALS: BP 98/69; PULSE 92; RESP 16; TEMP 36.8; O2SAT 96
--- NOTE | 2021-09-08 12:50 | NM_ITS ---
WS: [id number] NUCLEAR MEDICINE HIDA SCAN WITH GALLBLADDER EJECTION FRACTION HISTORY: cyclical vomiting COMPARISON: 09/04/2021 CT. TECHNIQUE: The patient was intravenously injected with 8.4 mCi of TC99m Mebrofenin. Immediate imaging over the right upper quadrant was followed by 5 minute image and additional images for a total of 60 minutes. Normal uptake of radiotracer throughout the liver. Activity identified in the gallbladder at 10 minutes and well distended by 60 minutes. Activity in the proximal small bowel was seen by 10 minutes. Good washout of the radiotracer from the liver by 60 minutes. The patient then drank 8 ounces of Ensure Plus. Ejection fraction at 60 minutes was 42%. Normal GB ej ection fraction is 35-75%. Post fatty meal symptoms: None. NM/NM hepatobiliary w phar* [id number] IMPRESSION: 1. Normal HIDA scan. 2. Normal gallbladder ejection fraction.
[2021-09-08 15:43] VITALS: BP 107/64; PULSE 70; RESP 14; TEMP 36.8; O2SAT 98
[2021-09-08 17:35] VITALS: BP 107/64; PULSE 70; RESP 14; TEMP 36.8; O2SAT 98
--- NOTE | 2021-09-08 17:36 | PC.NURSE ---
Discharge Note Patient discharged to Home via private vehicle accompanied by family. Discharge instructions reviewed with patient and/or national account representative. Mobile pharmacy medications and/or prescriptions provided. Belongings/home medications returned.
[2021-09-09 07:16] LABS: Glucose Point of Care 183 mg/dL (70-110)
[2021-09-09 07:16] LABS: Glucose Point of Care 125 mg/dL (70-110)
== END 2021-09-08 17:36 | disposition home or self-care (01) | DRG 177 ==
LOC: ER 23:02 → ER IP 09-03 00:31 → MEDSURG 09-03 13:43
PROVIDERS: Internal Medicine; Surgery; Admitting Provider Internal Medicine; Emergency Provider Emergency Medicine; PCP Nurse Practitioner Family; Visit Provider Internal Medicine
PROC: 0DJ08ZZ Inspection of Upper Intestinal Tract, Via Natural or Artificial Opening Endoscopic (ICD-10-PCS; CPT 43235; principal; 2021-09-07 11:30)
DX: U07.1 COVID-19 (principal); J12.82 Pneumonia due to coronavirus disease 2019; N13.8 Other obstructive and reflux uropathy; E87.2 Acidosis; E44.1 Mild protein-calorie malnutrition; N30.90 Cystitis, unspecified without hematuria; E86.0 Dehydration; I10 Essential (primary) hypertension; E78.5 Hyperlipidemia, unspecified; E11.65 Type 2 diabetes mellitus with hyperglycemia; E11.40 Type 2 diabetes mellitus with diabetic neuropathy, unspecified; E11.43 Type 2 diabetes mellitus with diabetic autonomic (poly)neuropathy; K31.84 Gastroparesis; I25.10 Atherosclerotic heart disease of native coronary artery without angina pectoris; Z95.5 Presence of coronary angioplasty implant and graft; Z87.440 Personal history of urinary (tract) infections; N40.1 Benign prostatic hyperplasia with lower urinary tract symptoms; R33.8 Other retention of urine; K21.9 Gastro-esophageal reflux disease without esophagitis; Z87.442 Personal history of urinary calculi; G47.33 Obstructive sleep apnea (adult) (pediatric); Z87.891 Personal history of nicotine dependence; E83.42 Hypomagnesemia; Z68.20 Body mass index [BMI] 20.0-20.9, adult; E87.6 Hypokalemia; I95.9 Hypotension, unspecified; Z79.82 Long term (current) use of aspirin; Z79.84 Long term (current) use of oral hypoglycemic drugs; K29.70 Gastritis, unspecified, without bleeding; N31.9 Neuromuscular dysfunction of bladder, unspecified; F12.90 Cannabis use, unspecified, uncomplicated; R11.15 Cyclical vomiting syndrome unrelated to migraine; N20.0 Calculus of kidney; K20.90 Esophagitis, unspecified without bleeding
CPT/HCPCS: 36415; 36416; 36600; 43235; 51701; 51702; 70450; 71045; 71250; 74018; 74176; 74177; 78227; 80048; 80053; 81001; 82009; 82803; 82962; 83036; 83605; 83690; 83735; 84100; 84443; 84484; 85025; 85378; 87040; 87077; 87086; 87186; 87426; 87804; 93005; 93306; 96365; 96367; 96372; 96375; 97161; 99285; A9537; C9113; J0696; J1650; J1815; J2405; J2550; J2704; J2765; J3475; J7030; J8540; Q0162; Q9967

== ENCOUNTER → 2022-01-26 14:07 | Outpatient (BNVA) | payer MEDICARE, SELFPAY | PROVIDERS: PCP Nurse Practitioner Family; Visit Provider Urology | DX: N40.1 Benign prostatic hyperplasia with lower urinary tract symptoms (principal); R33.9 Retention of urine, unspecified | CPT/HCPCS: 51798; 99213 ==